=== PATIENT | female | born 1995 | race Hispanic/Latino ===

== ENCOUNTER 2018-03-28 15:09 | Inpatient (IN) | payer OTHER ==
[~2018-03-28] VITALS: Ht 149.9 cm; Wt 74.5 kg
--- NOTE | 2018-03-28 16:05 | Diagnostic Imaging Report ---
EXAMINATION: CHEST SINGLE (PORTABLE) COMPARISON: None INDICATION: Shortness of breath, history of fluid in the lungs DISCUSSION: Frontal view of the chest obtained at 1540 hours. HEART AND MEDIASTINUM: The heart is normal in morphology LINES: None. LUNGS/PLEURA: Moderate to large right pleural effusion. Small left pleural effusion. Aerated lung demonstrates no evidence of mass. No pneumonia or pulmonary edema. No pneumothorax. BONES AND SOFT TISSUES: No focal osseous lesion. The soft tissues are normal. IMPRESSION: Moderate to large right and small left pleural effusions. Underlying infiltrate or mass cannot be excluded. Signed by: Dr. Eloisa Becerra MD on 03/28/2018 4:01 PM
[2018-03-28 16:22] LABS: ALANINE AMINOTRANSFERASE 9 IU/L (0-55); ALBUMIN 2.6 g/dL (3.5-5.0); ALBUMIN/GLOBULIN RATIO 0.8 (0.8-2.0); ALKALINE PHOSPHATASE 103 IU/L (40-150); ANION GAP 12.3 mmol/L (8-16); BLOOD UREA NITROGEN 6 mg/dL (7-26); BUN/CREATININE RATIO 11 (6-25); CALCIUM 8.8 mg/dL (8.4-10.2); CARBON DIOXIDE 19 mmol/L (22-29); CHLORIDE 105 mmol/L (98-107); CREATINE KINASE 12 IU/L (29-168); CREATININE, SERUM 0.57 mg/dL (0.57-1.11); EST GLOMERULAR FILTRATION RATE > 60 ML/MIN (60-); GLUCOSE 100 mg/dL (74-118); POTASSIUM 3.3 mmol/L (3.5-5.1); SODIUM 133 mmol/L (136-145)
[2018-03-28 16:29] LABS: BASOPHILS % 0.3 % (0.0-1.0); EOSINOPHILS # (AUTO) 0.2 (0.0-0.4); EOSINOPHILS % 3.7 % (0.0-6.0); HEMATOCRIT 34.5 % (34.2-44.1); HEMOGLOBIN 12.2 g/dL (12.0-16.0); LYMPHOCYTES # (AUTO) 0.9 (1.0-3.2); LYMPHOCYTES % 13.6 % (18.0-39.1); MEAN CORPUSCULAR HEMOGLOBIN 31.4 pg (28-32); MEAN CORPUSCULAR HGB CONC 35.4 g/dL (31-35); MEAN CORPUSCULAR VOLUME 88.9 fL (81-99); MONOCYTES # (AUTO) 0.4 (0.2-0.8); MONOCYTES % 6.7 % (4.4-11.3); NEUTROPHILS # (AUTO) 4.9 (2.1-6.9); NEUTROPHILS % 75.4 % (38.7-80.0); PLATELET COUNT 184 x10e3/uL (140-360); RED BLOOD COUNT 3.88 x10e6/uL (3.6-5.1); RED CELL DISTRIBUTION WIDTH 14.1 % (11.7-14.4)
[2018-03-28] MEDS ORDERED: ENOXAPARIN SODIUM INJ 100 MG/ML SYR SC STA (16:29)
[2018-03-28 16:40] LABS: INR 1.07; PARTIAL THROMBOPLASTIN TIME 26.2 seconds (23.8-35.5); PROTHROMBIN TIME 13.1 seconds (11.9-14.5)
[2018-03-28] MEDS ORDERED: FUROSEMIDE INJ 10 MG/ML 4 ML VIAL IV ONE (17:15)
[2018-03-28] MEDS ORDERED: ONDANSETRON HCL INJ 2 MG/ML VIAL IV PRN (17:45)
[2018-03-28] MEDS ORDERED: HYDROMORPHONE 1MG/1ML INJ IV PRN (17:45)
[2018-03-28] MEDS ORDERED: DIPHENHYDRAMINE HCL INJ 50 MG/ML VIAL IV PRN (17:45)
[2018-03-28 20:32] VITALS: BP 114/91
[2018-03-28 20:42] VITALS: BP 114/91
[2018-03-28] MEDS: ACETAMINOPHEN 325 MG TAB PO PRN (23:16)
[2018-03-29] VITALS (8 sets, daily range): BP systolic 105–129; BP diastolic 71–96
[2018-03-29] MEDS: FAMOTIDINE 20 MG TAB PO SCH ×2 (07:30→16:29)
[2018-03-29] MEDS ORDERED: POTASSIUM CHLORIDE 20 MEQ TAB CR PO ONE (08:45)
[2018-03-29] MEDS ORDERED: HYDROMORPHONE 2MG/ML 2 MG/ML ML IV PRN (09:00)
[2018-03-29] MEDS: ONDANSETRON HCL INJ 2 MG/ML VIAL IV PRN (10:02)
[2018-03-29 13:20] LABS: EOSINOPHILS,BODY FLUID 10 %; LYMPHOCYTES,BODY FLUID 52 %; MONO/MACROPHG,BODY FLUID 1 %; OTHER CELLS,BODY FLUID 37 %
[2018-03-29 13:33] LABS: BODY FLUID TYPE PERITONEAL
[2018-03-29 13:34] LABS: BODY FLUID APPEARANCE SL.CLOUDY; BODY FLUID COLOR RED
[2018-03-29 13:46] LABS: RBC,BODY FLUID 5024 cells/uL; WBC,BODY FLUID 520 cells/uL
--- NOTE | 2018-03-29 13:52 | Diagnostic Imaging Report ---
Procedure: Ultrasound-guided left diagnostic and therapeutic thoracentesis mixing roll operator: Dr. Major Foreman Pre-operative diagnosis: Left pleural effusion Post-operative diagnosis: Left pleural effusion Local sedation: 10 cc of 1% subcutaneous lidocaine Estimated blood loss: Minimal Specimens: 1750cc pleural fluid Implants: None DISCUSSION: Informed consent was obtained from the patient and documented in the medical record. The patient was placed in the upright position. The left posterior chest was prepped and draped in standard sterile fashion. 1% lidocaine was infiltrated into the skin and subcutaneous tissues for local anesthesia. Then under sonographic guidance, a 5 Fr catheter was advanced into the left pleural space. The catheter was advanced off the needle and connected to vacuum bottle with subsequent evacuation of 1750 cc of dark serous fluid. The catheter was removed and a sterile, occlusive dressing was applied. Sample was sent to the lab. The patient tolerated the procedure well. FINDINGS: Large left pleural effusion. IMPRESSION: Ultrasound-guided left thoracentesis with evacuation of 1750 cc straw-colored fluid. PLAN: Post procedural monitoring per protocol. Of note, the patient is and declined a post procedural chest radiograph at the time of the procedure. Signed by: Dr. Major Foreman MD on 03/29/2018 1:48 PM
--- NOTE | 2018-03-29 14:07 | Diagnostic Imaging Report ---
EXAM: US OB 1st TRIM SINGLE GEST INDICATION: High risk evaluation COMPARISON: None TECHNIQUE: Transabdominal and transvaginal grayscale and color doppler sonographic images of the pelvis were obtained. Transvaginal imaging was medically necessary to better evaluate the fetus. 22 yr old A0 Last Menstrual Period: Not reported FINDINGS: UTERUS: Orientation: Anteverted Size: 12.8 x 9.2 x 9.8 Mass: None Cervix: Normal GESTATIONAL SAC: Intrauterine, normal in appearance. No evidence of a subchorionic hemorrhage. YOLK SAC: Visualized EMBRYO/FETUS: Cane [place]-rump length: 6.98 Estimated sonographic gestational age: 13w 1d Cardiac activity: 155 bpm RIGHT OVARY: Removed LEFT OVARY: Poorly visualized due to abdominal gas. Mild free fluid. IMPRESSION: Single living intrauterine . Sonographic gestational age estimated at 13weeks 1days. Signed by: Dr. Manuel Swain M.D. on 03/29/2018 2:03 PM
[2018-03-29] MEDS ORDERED: POTASSIUM CHLORIDE 20 MEQ TAB CR PO NR (14:45)
--- NOTE | 2018-03-29 16:59 | History and Physical ---
HISTORY OF PRESENT ILLNESS: A 22-year-old female with past medical history positive for lupus. Patient came here with shortness of breath. She was found to have a right pleural effusion. She underwent a thoracentesis. She is feeling better right now. The oxygen saturation is 99%. REVIEW OF SYSTEMS: CARDIOVASCULAR: No chest pain or palpitation. RESPIRATORY: She has cough. Shortness of breath has improved significantly. No other symptoms. GASTROINTESTINAL: No nausea, no vomiting, no diarrhea. GENITOURINARY: No frequency, no dysuria. ALLERGIES: SHE IS NOT ALLERGIC TO ANY MEDICATION. SOCIAL HISTORY: She does not smoke. She does not drink. PAST MEDICAL HISTORY: Positive for lupus and also recurrent thoracentesis. Also she has been treated by a loading unit operator crimping for lupus in an outside facility. VITAL SIGNS: On the blood pressure 115/80, temperature 98.4, heart rate 96 per minute, respiratory rate is 22 per minute. Oxygen saturation 99%. PHYSICAL EXAMINATION: HEART: Shows regular rhythm. Normal S1 and S2 sounds. LUNGS: Show decreased breath sounds bilaterally. ABDOMEN: Soft. EXTREMITIES: Show 2+ bilateral pedal edema. LAB: On the BMP: Sodium 133, potassium 3.3, chloride 105, CO2 19, BUN 6, creatinine 0.57, glucose 100. On the CBC: White blood count 6.33, hemoglobin 12.2, hematocrit 34.5, platelet count 184,000. PT 13.1, PTT 26.2, INR 1.07. AST 17, ALT 9, total bilirubin 0.2, alkaline phosphatase 103. FINAL IMPRESSION: 1. Recurrent right pleural effusion status post thoracentesis. 2. History of lupus. 3. Hypokalemia. 4. . 5. Hypoxemia. PLAN OF TREATMENT: We are going to continue Tylenol 650 mg q.4 h. as needed. Benadryl 25 mg q.6 h. as needed. Pepcid 20 mg twice a day[address] Dr. Wood has been consulted from the pulmonary point of view. Dr. Markham has been consulted from the OB-STREETCAR REPAIRER point of view. Pelvic ultrasound has shown the 13 weeks' already. The patient knows that we are very limited in the medication options that we can give her due to the . We are going to order the obmf-zbgtsm-vsthsogc DNA antibodies also and ESR also for a confirmation of lupus. Job#: [id number] EV
[2018-03-29 17:23] LABS: ANION GAP 11.4 mmol/L (8-16); BLOOD UREA NITROGEN 7 mg/dL (7-26); BUN/CREATININE RATIO 11 (6-25); CALCIUM 8.7 mg/dL (8.4-10.2); CARBON DIOXIDE 23 mmol/L (22-29); CHLORIDE 104 mmol/L (98-107); CREATININE, SERUM 0.64 mg/dL (0.57-1.11); EST GLOMERULAR FILTRATION RATE > 60 ML/MIN (60-); GLUCOSE 99 mg/dL (74-118); POTASSIUM 3.4 mmol/L (3.5-5.1); SODIUM 135 mmol/L (136-145)
[2018-03-29] MEDS: BENZONATATE 100 MG CAP PO PRN (19:10)
[2018-03-29] MEDS ORDERED: MAGNESIUM SULF 1GRAM/DEXTROSE 100 ML IV ONE (20:15)
[2018-03-29] MEDS ORDERED: MAGNESIUM SULFATE 2GM/50ML 100 ML IV ONE (20:45)
[2018-03-29] MEDS ORDERED: SODIUM CHLORIDE 0.9% 250ML 250 ML ONE (20:54)
[2018-03-30] VITALS (7 sets, daily range): BP systolic 101–109; BP diastolic 66–77
[2018-03-30 05:27] LABS: ANION GAP 11.8 mmol/L (8-16); BLOOD UREA NITROGEN 7 mg/dL (7-26); BUN/CREATININE RATIO 13 (6-25); CALCIUM 8.7 mg/dL (8.4-10.2); CARBON DIOXIDE 22 mmol/L (22-29); CHLORIDE 107 mmol/L (98-107); CREATININE, SERUM 0.55 mg/dL (0.57-1.11); EST GLOMERULAR FILTRATION RATE > 60 ML/MIN (60-); GLUCOSE 89 mg/dL (74-118); POTASSIUM 3.8 mmol/L (3.5-5.1); SODIUM 137 mmol/L (136-145)
[2018-03-30] MEDS: FAMOTIDINE 20 MG TAB PO SCH ×2 (07:46→15:53)
[2018-03-30] MEDS: ONDANSETRON HCL INJ 2 MG/ML VIAL IV PRN (09:30)
--- NOTE | 2018-03-30 10:57 | Consultation ---
DATE OF CONSULTATION: Thank you very much for asking me to see this patient, 22 years old, 1, para 0. She came into the hospital complaining of shortness of breath and lower leg swelling. She was found to have pleural effusion. She has a history of systemic lupus that was diagnosed over a year ago. She is on hydroxychloroquine and vitamins. She had multiple thoracocenteses in the past. During her stay in the hospital, she was found to be . Ultrasound showed a viable, 25-iurh-9-day . She denies any leakage of fluid or vaginal bleeding. 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 PAST SURGICAL HISTORY: Thoracocentesis multiple times. Tonsillectomy, adenoidectomy, and right oophorectomy. ALLERGIES: NO KNOWN DRUG ALLERGIES. SOCIAL HISTORY: She denies smoking, ethanol and drug abuse. REVIEW OF SYSTEMS: She denies any hematological, gastrointestinal, dermatological, psychological, or musculoskeletal problem or psychiatric problem. PHYSICAL EXAMINATION VITAL SIGNS: Stable. CHEST: Clear to auscultation. CARDIOVASCULAR: Regular rate and rhythm. ABDOMEN: Soft, nontender. ASSESSMENT AND PLAN: She is a 22-year-old, 1, para 0, at 13 weeks. The patient was advised to continue vitamins and also to add folic acid tablets in the future. Hydroxychloroquine depends on the necessity of continuation of the medication. However, we do not have enough human data to recommend any iatrogenic effect on the baby. The patient was advised to see her OB doctor once she is discharged from the hospital. I will be happy to follow up on her as needed during her hospital stay. Once again, thank you very much Dr. King, for allowing me to see this patient. Please do not hesitate to call me if I can be of any further help in the future. Job#: [id number] cc:ZORAIDA KING MD
--- NOTE | 2018-03-30 23:02 | Discharge Summary ---
HOSPITAL COURSE: The patient is a 22-year-old female who had a past medical history positive for apparently lupus. She is , came here with shortness of breath. She was found to have right pleural effusion. She underwent thoracentesis. She is feeling much better. The oxygen saturation is 99%. She had hypokalemia, potassium has been replaced. Dr. Wood, her pulmonology, is going to see her as an outpatient. She has her gynecology seeing her as an outpatient. Also, she was told to follow with her compound coating machine offbearer. So far, the pleural fluid is negative for any type of infection after 1 day. We are going to wait until tomorrow. If the pleural effusion is negative for today, the patient can be able to go home tomorrow if okay with Dr. Wood. PHYSICAL EXAM VITAL SIGNS: Blood pressure 103/70, temperature 97.9, heart rate 107 per minute, respiratory rate 17 per minute, oxygen saturation 98%. HEART: Shows regular rhythm. Normal S1, S2 sounds. LUNGS: Clear bilaterally. ABDOMEN: Soft. LABS: On the BMP, sodium 137, potassium 3.8, chloride 107, CO2 22, BUN 7, creatinine 0.55, glucose 89. On the CBC, white blood count 6.33, hemoglobin 12.2, hematocrit 34.5, platelet count 184,000. PT 13.1, INR 1.07, PTT 26.2. AST 17, ALT 9, total bilirubin 0.2, alkaline phosphatase 103. FINAL IMPRESSION 1. Right pleural effusion, status post thoracentesis. 2. History of lupus. 3. Hypokalemia. 4. Third trimester . 5. Hypoxemia secondary to pleural effusion which is resolved. PLAN OF TREATMENT: Patient will follow up with her OB-WIRE STITCHER OPERATOR, Dr. Wood also for pulmonary and her compound coating machine offbearer for lupus also as long as the fluid culture is negative for 48 hours and if okay with the consultants. ZORAIDA KING MD Job#: [id number] GE
[2018-03-31] VITALS (7 sets, daily range): BP systolic 71–115; BP diastolic 60–71
[2018-03-31] MEDS: FAMOTIDINE 20 MG TAB PO SCH ×2 (08:48→17:00)
[2018-03-31] MEDS: ONDANSETRON HCL INJ 2 MG/ML VIAL IV PRN (10:00)
[2018-03-31] MEDS: BENZONATATE 100 MG CAP PO PRN ×2 (10:59→21:46)
[2018-03-31] MEDS: ACETAMINOPHEN 325 MG TAB PO PRN (12:15)
--- NOTE | 2018-03-31 15:54 | Diagnostic Imaging Report ---
ULTRASOUND: Chest TECHNIQUE: Ultrasound evaluation of the chest for pleural effusion. HISTORY: Pleural effusion COMPARISON: Chest radiograph March 28, 2018. DISCUSSION: Bilateral anechoic fluid in the dependent portion of the pleural cavities. IMPRESSION: Moderate bilateral pleural effusions. Signed by: Dr. Syed Dallas D.O., M.M.M. on 03/31/2018 3:50 PM
--- NOTE | 2018-03-31 18:12 | Progress Note ---
DATE: INTERNAL MEDICINE PROGRESS NOTE SUBJECTIVE: Patient is complaining of shortness of breath. We did an ultrasound of both lungs. It showed moderate pleural effusion. Patient is going to get a thoracentesis. We consulted Dr. Wood, pulmonology. We are still waiting for his evaluation. If we do not have any visit, we might call another shearing supervisor. PHYSICAL EXAM: VITAL SIGNS: Blood pressure 114/70. Temperature 99.4. Heart rate 100 per minute. Respiratory rate 18 per minute. Oxygen saturation 96%. HEART: Shows regular rhythm. Normal S1 and S2 sounds. LUNGS: Show decreased air sounds bilaterally. ABDOMEN: Soft. EXTREMITIES: Showed 2+ bilateral pedal edema. FINAL IMPRESSION: 1. Recurrent bilateral pleural effusion. 2. History of lupus but negative anti-double DNA antibodies. 3. . On the BMP: Sodium 137, potassium 3.8, chloride 107, CO2 22, BUN 7, creatinine 0.55, glucose 89. On the CBC: White blood count 6.53, hemoglobin 12.2, hematocrit 34.5, platelet count 184,000. PT 13.1, INR 1.07, PTT is 26.2. AST 17, ALT 9, total bilirubin 0.2, alkaline phosphatase 103. PLAN OF TREATMENT: Continue with Tessalon 200 mg q.8 h. as needed. Pepcid 20 mg twice a day. Tylenol 650 mg q.6 h. as needed. Benadryl 25 mg q.6 h. as needed. Case has been discussed with the nurse and with the patient. Job#: [id number] EV
[2018-04-01] VITALS: BP 102/60
[2018-04-01 04:00] VITALS: BP 95/62
[2018-04-01] MEDS: FAMOTIDINE 20 MG TAB PO SCH ×2 (07:23→16:45)
[2018-04-01 08:00] VITALS: BP 103/64
[2018-04-01 09:15] VITALS: BP 95/62
--- NOTE | 2018-04-01 10:51 | Diagnostic Imaging Report ---
PROCEDURE: ULTRASOUND GUIDED THORACENTESIS COMPARISON: None. INDICATIONS:PLEURAL EFFUSION FINDINGS: After informed consent was obtained, the patient was placed in the sitting position and preliminary ultrasound of the posterior chest identified a safe route into the right pleural effusion. The overlying skin was prepped and draped in usual sterile fashion. Lidocaine 1% was used for local anesthesia. Under ultrasound guidance, a 5 [place] Cent[place] needle was advanced into the pleural fluid and 1550 cc's were aspirated. The patient tolerated the procedure well and there were no immediate post-procedural complications. A post-thoracentesis chest radiograph was declined by the patient as she is . Specimen was sent to the laboratory for analysis. CONCLUSION: Uncomplicated ultrasound-guided right thoracentesis with removal of 1550 cc's of cloudy effusion. Enrique Donis D.O. Dictated by: Enrique Donis D.O. on 04/01/2018 at 10:58 Electronically approved by: Enrique Donis D.O. on 04/01/2018 at 10:58
--- NOTE | 2018-04-01 11:57 | Diagnostic Imaging Report ---
EXAM: Obstetric Pelvic Ultrasound limited INDICATION: Post procedure ultrasound COMPARISON: March 29, 2018 TECHNIQUE: Transabdominal evaluation of the pelvis was performed in the transverse and longitudinal planes with grayscale, color Doppler and spectral waveform analysis. CLINICAL HISTORY: 22 year old A0; mp 12/27/2017. Established due date 10/03/2018 FINDINGS: Uterus: Orientation: Normal Cervix: Cervical length 2.5 cm. Distance of placental tip to internal cervical os 4.1 cm No evidence of placenta previa. Single gestation. Visualized anatomy: Four-chamber heart is limited Regular cardiac rhythm noted with 156 bpm. Normal-appearing stomach visualized. Kidneys not well seen. bladder nondistended. BPD 2.7 cm. HC 10.23 cm. AC 8.0 cm. FL 1.46 cm position transverse and variable. Placental location posterior YOHANNES 11.3 cm IMPRESSION: Single viable intrauterine is seen consistent with 14 weeks 5 days gestation in variable position. No evidence of placenta previa. Signed by: Dr. Guanaco Valera M.D. on 04/01/2018 11:53 AM
[2018-04-01 12:00] VITALS: BP 103/74
[2018-04-01 16:00] VITALS: BP 100/68
--- NOTE | 2018-04-01 18:34 | Discharge Summary ---
HISTORY OF PRESENT ILLNESS: A 22-year-old female with past medical history positive for possible lupus, recurrent pleural effusions. Patient came here with shortness of breath. She was found to have pleural effusion. She underwent ultrasound-guided thoracentesis. Then she had recurrent right pleural effusion. She had another thoracentesis done. She is feeling better. She wants to go home. She has been seen by Dr. Markham for OB-INK BLENDER due to her . The is viable right now. She was seen by , one of Dr. Wood's pulmonary partners. He is going to be seeing the patient as an outpatient. PHYSICAL EXAM: HEART: Shows regular rhythm, normal S1 and S2 sounds. LUNGS: Show decreased breath sounds on both bases. VITAL SIGNS: Blood pressure 103/74, temperature 98.4, heart rate 96 per minute, respiratory rate 17 per minute, oxygen saturation 97%. LABORATORY STUDIES: On the blood work we have a BMP: Sodium 137, potassium 3.8, chloride 107, CO2 22, BUN 7, creatinine 0.55, glucose 89. On the CBC: White blood count 6.53, hemoglobin 10.2, hematocrit 34.5, platelet count 184,000. PT 13.1, INR 1.00, PTT is 26.2. AST 17, ALT 9, total bilirubin 0.2, alkaline phosphatase 103. FINAL IMPRESSIONS: 1. Recurrent pleural effusion. 2. History of lupus. PLAN OF TREATMENT: Patient is going to be followed up by Dr. Wood, office administration, who is very familiar with the case. I have reinforced the fact that she has to follow up with the OB-INK BLENDER for the also and the production troubleshooter also. Because of her , we are limited in what medication we can give the patient. Patient is doing well. No shortness of breath and then the oxygen saturation is 97%. A fluid culture is negative for 3 days. No fever. ZORAIDA KING MD Job#: [id number] EV
--- NOTE | 2018-04-01 18:45 | Discharge Summary ---
During the time the patient was under my care, the thoracentesis was done under ultrasound guidance only, as I said, once the patient came under my care because of the . Patient is aware what medication she can take because of the and she is aware of the contraindications of the medication. We cannot give any diuretics because of the also. So, the patient is aware of that; and as I said, the patient is going to follow up with Dr. Wood from pulmonary, her OB-CONVEYOR FEEDER because of the and also the engineered wood designer. ZORAIDA KING MD Job#: [id number] GE
--- NOTE | 2018-04-02 03:00 | Consultation ---
DATE OF CONSULTATION: April 01, 2018 PULMONARY MEDICINE CONSULT REFERRING PHYSICIAN: Dr. Alcantar. HISTORY: Ms. White is a pleasant 22-year-old female with pleural effusions. The patient with complicated history, but of note, she is actively at over 13 weeks. I was called this morning to see the patient due to need for emergency pulmonary coverage. The patient with significant pleural effusions. The patient had neuropathy type symptoms and she was diagnosed with drug induced lupus in 2014 and this was thought due to oral contraceptive that she was taking. The patient continued to do okay. However, she developed a butterfly rash, arthritis, and possibly some neuropathic kind of pain. In August 2016, she was diagnosed with systemic lupus erythematosus. The patient required 1st thoracentesis in August 2016. The patient was given prednisone 100 mg, azathioprine 50 mg, Plaquenil 200 mg twice a day, and she was on medicines for the most part of 10 months. She had some improvement. However, the patient was on polypharmacy and she was worried that she was getting side effects of medications. She stopped all medications on her own earlier this year. She subsequently had q.3 months thoracentesis, but she has had 6 to 7 thoracentesis in last month and a half. The patient switched master fire control technician, but still has not resumed medicines and she seems to have distrust of these medications. She presented to [facility] on March 28, 2018, after being sent by different communication technician. The patient had thoracentesis, but fluid rapidly recurred. A 520 mL was out on March 29, 2018. I am consulted as fluid rapidly recurred. PAST MEDICAL HISTORY: Lupus reported, recurrent thoracentesis. Current master fire control technician, Dr. Ignacio. CURRENT MEDICATIONS: Mostly none. ALLERGIES: NO KNOWN DRUG ALLERGIES. SOCIAL HISTORY: She smoked from age 17 to 21, less than half a pack a day, usually not practically cigarettes, but other kinds of tobacco. She drank alcohol heavily for only a few years after age 16, but not recently. No IV drugs, no drug use. She was waitressing. FAMILY HISTORY: Noncontributory. REVIEW OF SYSTEMS GENERAL: Unexpected weight changes. OPHTHALMOLOGIC: No double vision. ENT: No thyroid disorder. PULMONARY: No asthma. CARDIAC: No heart attacks. GI: No constipation. : No blood in urine. NEUROLOGIC: No seizures. DERMATOLOGIC: No active rashes. MUSCULOSKELETAL: Mild arthritis, not too bad. OBJECTIVE VITAL SIGNS: Afebrile, vital signs noted per electronic record. GENERAL: In no acute distress. Able to talk in full sentences, seen calm and pleasant in bed. HEENT: Normocephalic, atraumatic. Throat midline. NECK: Supple. LUNGS: Bilateral air entry, decreased breath sounds at both lungs. CARDIOVASCULAR: S1, S2. No murmurs, rubs or gallops. ABDOMEN: Soft, nontender. EXTREMITIES: No clubbing or cyanosis. There is 1+ edema. INTEGUMENT: No rash or purpura. LABS: Potassium 3.8, BUN 7, creatinine 0.6. White count 7, hematocrit 35, platelets 184,000. INR 1.07. IMPRESSION 1. Recurrent pleural effusions, under investigation. 2. Active , over 13 weeks. 3. Reported systemic lupus erythematosus. 4. Medicine nonadherence. 5. Minimal former smoker. 6. Minimal alcohol in the past. 7. History of allergy, mild, perennial. PLAN: I have counseled the patient. I recommend checking for lupus activity at this time. Consideration should be for steroids based on the activity level. She should be replaced on her Plaquenil and azathioprine realistically for lupus control. Of course, she will need counseling regarding risk to her baby in utero. However, she is high risk in this current state, so it seems reasonable to resume lupus agents. The patient can continue recurrent thoracentesis at this time. She needs a full diagnostic assessment of the pleural effusion. I notified her I would discuss with her master fire control technician. Thank you very much Dr. Alcantar for allowing me a chance to participate in the care of Ms. White. Please do not hesitate to contact me if I could help in any way. Job#: [id number] SANTOS
== END 2018-04-01 18:19 | disposition home or self-care (01) | DRG 547 ==
LOC: ER 15:13 → ERHOLD 17:39 → IMCU 19:20 → MED/SURG2 03-30 18:31
PROVIDERS: ADMIT Internal Medicine; ATTEND Internal Medicine
PROC: 0W993ZZ Drainage of Right Pleural Cavity, Percutaneous Approach (ICD-10-PCS; principal; 2018-03-28)
DX: M32.13 Lung involvement in systemic lupus erythematosus (principal); Z34.01 Encounter for supervision of normal first pregnancy, first trimester; R09.02 Hypoxemia
CPT/HCPCS: 32555; 36415; 71045; 74470; 76604; 76801; 76815; 80048; 80053; 82550; 82553; 83615; 83735; 83880; 84157; 84484; 85025; 85610; 85651; 85730; 86039; 86225; 87070; 87102; 87116; 87205; 87206; 88112; 88305; 89051; 93005; 96360; 99284; J1650; J1940; J2405; J7050

== ENCOUNTER 2019-02-27 16:45 | Inpatient (IN) | payer OTHER ==
[~2019-02-27] VITALS: Ht 149.9 cm; Wt 78.0 kg
--- OUTSIDE RECORDS SUMMARY | 2019-02-27 16:48 | XMS REPORT | Continuity of Care Document ---
Author Author [employer] Organization [employer] Address Unknown Phone Unavailable Care Team Providers Care Bone Char Puller Name Role Phone Strolby Information Qwenty Unavailable Unavailable Problems Problem Status Onset Date Classification Date Reported Comments Source 848.3 - SPRAIN OF RIBS Active 04/15/2013 [facility] [place] Secondary pleural effusion Active Problem 04/01/2018 [facility] Medications No Data Provided for This Section Allergies, Adverse Reactions, Alerts No Known Medication Allergies Immunizations No Data Provided for This Section Results Order Name Results Value Reference Range Date Interpretation Comments Source Body fluid lactate dehydrogenase measurement (enzymatic activity/volume) Body fluid lactate dehydrogenase measurement (enzymatic activity/volume) 78 04/01/2018 [facility] Body fluid protein measurement (mass/volume) Body fluid protein measurement (mass/volume) 4.1 04/01/2018 [facility] Erythrocyte sedimentation rate by Westergren method Erythrocyte sedimentation rate by Westergren method 62 0 - 20 03/30/2018 [facility] Estimated glomerular filtration rate (GFR) determination Estimated glomerular filtration rate (GFR) determination >60 60 03/30/2018 [facility] Glucose measurement Glucose measurement 89 74 - 118 03/30/2018 [facility] Serum or plasma anion gap Serum or plasma anion gap 11.8 8 - 16 03/30/2018 [facility] Serum or plasma calcium measurement (mass/volume) Serum or plasma calcium measurement (mass/volume) 8.7 8.4 - 10.2 03/30/2018 [facility] Serum or plasma carbon dioxide, total measurement (moles/volume) Serum or plasma carbon dioxide, total measurement (moles/volume) 22 22 - 29 03/30/2018 [facility] Serum or plasma chloride measurement (moles/volume) Serum or plasma chloride measurement (moles/volume) 107 98 - 107 03/30/2018 [facility] Serum or plasma creatinine measurement (mass/volume) Serum or plasma creatinine measurement (mass/volume) 0.55 0.57 - 1.11 03/30/2018 [facility] Serum or plasma magnesium measurement (mass/volume) Serum or plasma magnesium measurement (mass/volume) 1.8 1.3 - 2.1 03/30/2018 [facility] Serum or plasma potassium measurement (moles/volume) Serum or plasma potassium measurement (moles/volume) 3.8 3.5 - 5.1 03/30/2018 [facility] Serum or plasma sodium measurement (moles/volume) Serum or plasma sodium measurement (moles/volume) 137 136 - 145 03/30/2018 [facility] Serum or plasma urea nitrogen measurement (mass/volume) Serum or plasma urea nitrogen measurement (mass/volume) 7 7 - 26 03/30/2018 [facility] Serum or plasma urea nitrogen/creatinine mass ratio Serum or plasma urea nitrogen/creatinine mass ratio 13 6 - 25 03/30/2018 [facility] Serum DNA double strand antibody assay (units/volume) Serum DNA double strand antibody assay (units/volume) 1 0 - 9 03/29/2018 [facility] Body fluid eosinophil percentage Body fluid eosinophil percentage 10 03/29/2018 [facility] Body fluid lymphocyte count Body fluid lymphocyte count 52 03/29/2018 [facility] Body fluid monocyte count Body fluid monocyte count 1 03/29/2018 [facility] Body fluid other cells manual count Body fluid other cells manual count 37 03/29/2018 [facility] Determination of appearance of body fluid Determination of appearance of body fluid SL.CLOUDY 03/29/2018 [facility] Evaluation of color of body fluid Evaluation of color of body fluid RED 03/29/2018 [facility] Manual body fluid erythrocytes count (number/volume) Manual body fluid erythrocytes count (number/volume) 5024 03/29/2018 [facility] Manual body fluid leukocytes count (number/volume) Manual body fluid leukocytes count (number/volume) 520 03/29/2018 [facility] Specimen source identification of body fluid Specimen source identification of body fluid PERITONEAL 03/29/2018 [facility] Total cell count Total cell count 100 03/29/2018 [facility] Activated partial thromboplastin time (aPTT) in platelet poor plasma bycoagulation assay Activated partial thromboplastin time (aPTT) in platelet poor plasma bycoagulation assay 26.2 23.8 - 35.5 03/28/2018 [facility] Automated blood basophil count (count/volume) Automated blood basophil count (count/volume) 0.0 0.0 - 0.1 03/28/2018 [facility] Automated blood basophil count as percentage of total leukocytes Automated blood basophil count as percentage of total leukocytes 0.3 0.0 - 1.0 03/28/2018 [facility] Automated blood eosinophil count Automated blood eosinophil count 0.2 0.0 - 0.4 03/28/2018 [facility] Automated blood eosinophil count as percentage of total leukocytes Automated blood eosinophil count as percentage of total leukocytes 3.7 0.0 - 6.0 03/28/2018 [facility] Automated blood hematocrit (volume fraction) Automated blood hematocrit (volume fraction) 34.5 34.2 - 44.1 03/28/2018 [facility] Automated blood lymphocyte count as percentage ot total leukocytes Automated blood lymphocyte count as percentage ot total leukocytes 13.6 18.0 - 39.1 03/28/2018 [facility] Automated blood monocyte count as percentage of total leukocytes Automated blood monocyte count as percentage of total leukocytes 6.7 4.4 - 11.3 03/28/2018 [facility] Automated blood neutrophil count Automated blood neutrophil count 4.9 2.1 - 6.9 03/28/2018 [facility] Automated blood platelet count (count/volume) Automated blood platelet count (count/volume) 184 140 - 360 03/28/2018 [facility] Automated blood segmented neutrophil count as percentage of total leukocytes Automated blood segmented neutrophil count as percentage of total leukocytes 75.4 38.7 - 80.0 03/28/2018 [facility] Automated erythrocyte mean corpuscular hemoglobin (mass per erythrocyte) Automated erythrocyte mean corpuscular hemoglobin (mass per erythrocyte) 31.4 28 - 32 03/28/2018 [facility] Automated erythrocyte mean corpuscular hemoglobin concentration measurement (mass/volume) Automated erythrocyte mean corpuscular hemoglobin concentration measurement (mass/volume) 35.4 31 - 35 03/28/2018 [facility] Automated erythrocyte mean corpuscular volume Automated erythrocyte mean corpuscular volume 88.9 81 - 99 03/28/2018 [facility] Blood erythrocytes automated count (number/volume) Blood erythrocytes automated count (number/volume) 3.88 3.6 - 5.1 03/28/2018 [facility] Blood hemoglobin measurement (moles/volume) Blood hemoglobin measurement (moles/volume) 12.2 12.0 - 16.0 03/28/2018 [facility] Blood leukocytes automated count (number/volume) Blood leukocytes automated count (number/volume) 6.53 4.8 - 10.8 03/28/2018 [facility] Blood lymphocytes count (number/volume) Blood lymphocytes count (number/volume) 0.9 1.0 - 3.2 03/28/2018 [facility] Blood monocytes automated count (number/volume) Blood monocytes automated count (number/volume) 0.4 0.2 - 0.8 03/28/2018 [facility] INR in Platelet poor plasma by Coagulation assay INR in Platelet poor plasma by Coagulation assay 1.07 03/28/2018 [facility] Prothrombin time (PT) in platelet poor plasma by coagulation assay Prothrombin time (PT) in platelet poor plasma by coagulation assay 13.1 11.9 - 14.5 03/28/2018 [facility] Red Cell Distribution Width 14.1 11.7 - 14.4 03/28/2018 [facility] IM GRANULOCYTES % 0.3 0.0 - 1.0 03/28/2018 [facility] Absolute Immature Granulocyte (auto 0.02 0 - 0.1 03/28/2018 [facility] B-Type Natriuretic Peptide <10.0 0 - 100 03/28/2018 [facility] Plasma globulin measurement (mass/volume) Plasma globulin measurement (mass/volume) 3.2 2.3 - 3.5 03/28/2018 [facility] Serum or plasma alanine aminotransferase measurement (enzymatic activity/volume) Serum or plasma alanine aminotransferase measurement (enzymatic activity/volume) 9 0 - 55 03/28/2018 [facility] Serum or plasma albumin measurement (mass/volume) Serum or plasma albumin measurement (mass/volume) 2.6 3.5 - 5.0 03/28/2018 [facility] Serum or plasma albumin/globulin mass ratio Serum or plasma albumin/globulin mass ratio 0.8 0.8 - 2.0 03/28/2018 [facility] Serum or plasma alkaline phosphatase measurement (enzymatic activity/volume) Serum or plasma alkaline phosphatase measurement (enzymatic activity/volume) 103 40 - 150 03/28/2018 [facility] Serum or plasma creatine kinase MB measurement (mass/volume) Serum or plasma creatine kinase MB measurement (mass/volume) 0.50 0 - 5.0 03/28/2018 [facility] Serum or plasma creatine kinase measurement (enzymatic activity/volume) Serum or plasma creatine kinase measurement (enzymatic activity/volume) 12 29 - 168 03/28/2018 [facility] Serum or plasma protein measurement (mass/volume) Serum or plasma protein measurement (mass/volume) 5.8 6.5 - 8.1 03/28/2018 [facility] Serum or plasma total bilirubin measurement (mass/volume) Serum or plasma total bilirubin measurement (mass/volume) 0.2 0.2 - 1.2 03/28/2018 [facility] Troponin I measurement by highly sensitive enzyme immunoassay Troponin I measurement by highly sensitive enzyme immunoassay <0.001 0 - 0.300 03/28/2018 [facility] Aspartate Amino Transf (AST/SGOT) 17 5 - 34 03/28/2018 [facility] Pathology Reports No Data Provided for This Section Diagnostic Reports Report Value Date Source Ribs unilateral Multiple views of the right ribs Clinical indication: Rib cage pain Findings: Multiple views of the right ribs were obtained. There is no evidence of acute or chronic rib fracture. There is no right effusion, focal consolation or pneumothorax. Impression: Normal right rib series. 04/15/2013 [facility] Consultation Notes No Data Provided for This Section Discharge Summaries No Data Provided for This Section History and Physicals No Data Provided for This Section Vital Signs No Data Provided for This Section Encounters Location Location Details Encounter Type Encounter Number Reason For Visit Attending Provider ADM Date DC Date Status Source OD [id number] 848.3 - SPRAIN OF RIBS JESI CATES 04/15/2013 Active [facility] Discharged Inpatient [id number] ZORAIDA KING MD 03/28/2018 04/01/2018 [facility] Procedures Procedure Code Date Perfomer Comments Source Limited ultrasound of one or more fetuses [id number] 04/01/2018 [facility] Ultrasound of chest including mediastinum [id number] 03/31/2018 [facility] Thoracentesis with ultrasound guidance [id number] 03/29/2018 [facility] Ultrasound of first trimester, single fetus [id number] 03/29/[facility] Assessment and Plan No Data Provided for This Section Plan of Care Plan of Care Date Source Discharge Date 04/01/18 6:19pm Disposition HOME, SELF-CARE Instructions/Education Provided Prescriptions See Medication Section 04/01/2018 [facility] Social History Social History Date Source No social history information available. 04/01/2018 [facility] Family History No Data Provided for This Section Advance Directives Order Name Results Value Date Source Advance Directives Advance Directives Directive Response Recorded Date/Time Does the patient have an advance directive? No 03/28/18 4:40pm If yes, is advance directive on file with [facility]? No 03/28/18 4:40pm If not on file with [facility] will patient provide a copy? No 03/28/18 4:40pm Do you have a Directive to Physician? No 03/28/18 4:40pm Do you have a Medical Power of Auto [employer] In[employer]? No 03/28/18 4:40pm Do you have an out of hospital Do Not Resuscitate Order? No 03/28/18 4:40pm Do you have any special needs we should be aware of? No 03/28/18 4:40pm Do you have a support person here with you today? Yes 03/28/18 4:40pm Did patient receive Notice of Privacy Practices? Yes 03/28/18 4:40pm Did patient receive patient rights and responsibilities? Yes 03/28/18 4:40pm 04/01/2018 [facility] Functional Status No Data Provided for This Section
[2019-02-27] MEDS ORDERED: BUMETANIDE1 MG PO (17:31)
[2019-02-27] MEDS ORDERED: RAPAMUNE1 MG PO (17:31)
[2019-02-27] MEDS ORDERED: HYDROXYCHLOROQ200 MG PO (17:31)
[2019-02-27 18:11] LABS: BASOPHILS % 0.4 % (0.0-1.0); EOSINOPHILS # (AUTO) 0.2 (0.0-0.4); EOSINOPHILS % 4.1 % (0.0-6.0); HEMATOCRIT 36.1 % (34.2-44.1); HEMOGLOBIN 10.7 g/dL (12.0-16.0); LYMPHOCYTES # (AUTO) 1.5 (1.0-3.2); LYMPHOCYTES % 28.8 % (18.0-39.1); MEAN CORPUSCULAR HEMOGLOBIN 24.2 pg (28-32); MEAN CORPUSCULAR HGB CONC 29.6 g/dL (31-35); MEAN CORPUSCULAR VOLUME 81.7 fL (81-99); MONOCYTES # (AUTO) 0.5 (0.2-0.8); MONOCYTES % 10.1 % (4.4-11.3); NEUTROPHILS # (AUTO) 2.9 (2.1-6.9); NEUTROPHILS % 56.4 % (38.7-80.0); PLATELET COUNT 275 x10e3/uL (140-360); RED BLOOD COUNT 4.42 x10e6/uL (3.6-5.1); RED CELL DISTRIBUTION WIDTH 16.2 % (11.7-14.4)
--- NOTE | 2019-02-27 18:26 | Diagnostic Imaging Report ---
EXAMINATION: PA and lateral views of the chest. COMPARISON: AP chest 03/28/2018 CLINICAL HISTORY: Shortness of breath, dizziness, fluid in lungs DISCUSSION: Lines/tubes: None. Lungs: Lungs are well-inflated. Bilateral interstitial and alveolar opacities extending from the eva. Pleura: Bilateral moderate pleural effusions Heart and mediastinum: Cardiac silhouette is obscured. Marked central pulmonary venous congestion. Bones and soft tissues: No acute bony abnormalities. IMPRESSION: 1. Findings consistent with decompensated CHF/fluid overload Signed by: Dr. Keegan Aguiar M.D. on 02/27/2019 6:22 PM
[2019-02-27 18:34] LABS: BILIRUBIN,URINE NEGATIVE (NEGATIVE); CLARITY,URINE CLEAR (CLEAR); COLOR,URINE YELLOW (YELLOW); KETONES,URINE NEGATIVE (NEGATIVE); LEUKOCYTE ESTERASE ,URINE SMALL (NEGATIVE); NITRITE,URINE NEGATIVE (NEGATIVE); PROTEIN,URINE DIPSTICK NEGATIVE (NEGATIVE); URINE UROBILINOGEN 0.2 mg/dL (0.2 - 1)
[2019-02-27 18:43] LABS: INR 1.05; PROTHROMBIN TIME 14.2 seconds (11.9-14.5)
[2019-02-27 18:44] LABS: PARTIAL THROMBOPLASTIN TIME 31.1 seconds (23.8-35.5)
[2019-02-27 18:52] LABS: ALBUMIN 2.8 g/dL (3.5-5.0); ALBUMIN/GLOBULIN RATIO 0.6 (0.8-2.0); ALKALINE PHOSPHATASE 108 IU/L (40-150); ANION GAP 11.6 mmol/L (8-16); BLOOD UREA NITROGEN 7 mg/dL (7-26); BUN/CREATININE RATIO 11 (6-25); CALCIUM 9.4 mg/dL (8.4-10.2); CARBON DIOXIDE 33 mmol/L (22-29); CHLORIDE 96 mmol/L (98-107); CREATININE, SERUM 0.64 mg/dL (0.57-1.11); EST GLOMERULAR FILTRATION RATE > 60 ML/MIN (60-); GLUCOSE 84 mg/dL (74-118); SODIUM 138 mmol/L (136-145)
[2019-02-27 18:59] LABS: ALANINE AMINOTRANSFERASE < 6 IU/L (0-55); POTASSIUM 2.6 mmol/L (3.5-5.1)
[2019-02-27 19:12] LABS: RBC,URINE 0-5 /HPF (0-5); WBC,URINE (MAN) 0-5 /HPF (0-5)
[2019-02-27 19:13] LABS: BACTERIA,URINE FEW /HPF; EPITHELIAL CELLS,URINE FEW /LPF
[2019-02-27] MEDS ORDERED: POTASSIUM CHLORIDE 20 MEQ TAB CR PO STA (19:23)
[2019-02-27] MEDS ORDERED: METOPROLOL TART50 MG PO (19:30)
[2019-02-27] MEDS ORDERED: FLUTICASONE PRO16 GM INH (19:30)
[2019-02-27] MEDS ORDERED: POTASSIUM CHLORIDE 10MEQ EA PO STA (19:43)
[2019-02-27] MEDS ORDERED: POTASSIUM CHLORIDE 10MEQ/100ML 100 ML IV ONE ×3 (20:00→22:00)
[2019-02-27] MEDS ORDERED: VANCOMYCIN 1GM/NS 250 ML 250 ML IV ONE (20:15)
[2019-02-27] MEDS ORDERED: SODIUM CHLORIDE 0.9% 1000ML 1,000 ML ONE (20:19)
[2019-02-27 20:36] LABS: ABG PCO2 47 mmHg (41-51); ABG PH 7.42 (7.31-7.41)
[2019-02-27 20:37] LABS: ABG HCO3 30 mmol/L (23-28); ABG PO2 96 mmHg (80-105)
[2019-02-27] MEDS ORDERED: POTASSIUM CHLORIDE 10MEQ EA ONE (20:56)
--- OUTSIDE RECORDS SUMMARY | 2019-02-27 21:19 | XMS REPORT | Continuity of Care Document ---
Author Author [facility] Organization [facility] Address Unknown Phone Unavailable Care Team Providers Care Field Sampling Technician Name Role Phone [employer] Information [employer] Unavailable Unavailable Problems Problem Status Onset Date Classification Date Reported Comments Source 848.3 - SPRAIN OF RIBS Active 04/15/2013 [facility] [place] Secondary pleural effusion Active Problem 04/01/2018 [facility] Medications No Data Provided for This Section Allergies, Adverse Reactions, Alerts No Known Medication Allergies Immunizations No Data Provided for This Section Results Order Name Results Value Reference Range Date Interpretation Comments Source Body fluid lactate dehydrogenase measurement (enzymatic activity/volume) Body fluid lactate dehydrogenase measurement (enzymatic activity/volume) 78 04/01/2018 [facility] Body fluid protein measurement (mass/volume) Body fluid protein measurement (mass/volume) 4.1 04/01/2018 [facility] Erythrocyte sedimentation rate by Westergren method Erythrocyte sedimentation rate by Westergren method 62 0 - 20 03/30/2018 [facility] Estimated glomerular filtration rate (GFR) determination Estimated glomerular filtration rate (GFR) determination >60 60 03/30/2018 [facility] Glucose measurement Glucose measurement 89 74 - 118 03/30/2018 [facility] Serum or plasma anion gap Serum or plasma anion gap 11.8 8 - 16 03/30/2018 [facility] Serum or plasma calcium measurement (mass/volume) Serum or plasma calcium measurement (mass/volume) 8.7 8.4 - 10.2 03/30/2018 [facility] Serum or plasma carbon dioxide, total measurement (moles/volume) Serum or plasma carbon dioxide, total measurement (moles/volume) 22 22 - 29 03/30/2018 [facility] Serum or plasma chloride measurement (moles/volume) Serum or plasma chloride measurement (moles/volume) 107 98 - 107 03/30/2018 [facility] Serum or plasma creatinine measurement (mass/volume) Serum or plasma creatinine measurement (mass/volume) 0.55 0.57 - 1.11 03/30/2018 [facility] Serum or plasma magnesium measurement (mass/volume) Serum or plasma magnesium measurement (mass/volume) 1.8 1.3 - 2.1 03/30/2018 [facility] Serum or plasma potassium measurement (moles/volume) Serum or plasma potassium measurement (moles/volume) 3.8 3.5 - 5.1 03/30/2018 [facility] Serum or plasma sodium measurement (moles/volume) Serum or plasma sodium measurement (moles/volume) 137 136 - 145 03/30/2018 [facility] Serum or plasma urea nitrogen measurement (mass/volume) Serum or plasma urea nitrogen measurement (mass/volume) 7 7 - 26 03/30/2018 [facility] Serum or plasma urea nitrogen/creatinine mass ratio Serum or plasma urea nitrogen/creatinine mass ratio 13 6 - 25 03/30/2018 [facility] Serum DNA double strand antibody assay (units/volume) Serum DNA double strand antibody assay (units/volume) 1 0 - 9 03/29/2018 [facility] Body fluid eosinophil percentage Body fluid eosinophil percentage 10 03/29/2018 [facility] Body fluid lymphocyte count Body fluid lymphocyte count 52 03/29/2018 [facility] Body fluid monocyte count Body fluid monocyte count 1 03/29/2018 [facility] Body fluid other cells manual count Body fluid other cells manual count 37 03/29/2018 [facility] Determination of appearance of body fluid Determination of appearance of body fluid SL.CLOUDY 03/29/2018 [facility] Evaluation of color of body fluid Evaluation of color of body fluid RED 03/29/2018 [facility] Manual body fluid erythrocytes count (number/volume) Manual body fluid erythrocytes count (number/volume) 5024 03/29/2018 [facility] Manual body fluid leukocytes count (number/volume) Manual body fluid leukocytes count (number/volume) 520 03/29/2018 [facility] Specimen source identification of body fluid Specimen source identification of body fluid PERITONEAL 03/29/2018 [facility] Total cell count Total cell count 100 03/29/2018 [facility] Activated partial thromboplastin time (aPTT) in platelet poor plasma bycoagulation assay Activated partial thromboplastin time (aPTT) in platelet poor plasma bycoagulation assay 26.2 23.8 - 35.5 03/28/2018 [facility] Automated blood basophil count (count/volume) Automated blood basophil count (count/volume) 0.0 0.0 - 0.1 03/28/2018 [facility] Automated blood basophil count as percentage of total leukocytes Automated blood basophil count as percentage of total leukocytes 0.3 0.0 - 1.0 03/28/2018 [facility] Automated blood eosinophil count Automated blood eosinophil count 0.2 0.0 - 0.4 03/28/2018 [facility] Automated blood eosinophil count as percentage of total leukocytes Automated blood eosinophil count as percentage of total leukocytes 3.7 0.0 - 6.0 03/28/2018 [facility] Automated blood hematocrit (volume fraction) Automated blood hematocrit (volume fraction) 34.5 34.2 - 44.1 03/28/2018 [facility] Automated blood lymphocyte count as percentage ot total leukocytes Automated blood lymphocyte count as percentage ot total leukocytes 13.6 18.0 - 39.1 03/28/2018 [facility] Automated blood monocyte count as percentage of total leukocytes Automated blood monocyte count as percentage of total leukocytes 6.7 4.4 - 11.3 03/28/2018 [facility] Automated blood neutrophil count Automated blood neutrophil count 4.9 2.1 - 6.9 03/28/2018 [facility] Automated blood platelet count (count/volume) Automated blood platelet count (count/volume) 184 140 - 360 03/28/2018 [facility] Automated blood segmented neutrophil count as percentage of total leukocytes Automated blood segmented neutrophil count as percentage of total leukocytes 75.4 38.7 - 80.0 03/28/2018 [facility] Automated erythrocyte mean corpuscular hemoglobin (mass per erythrocyte) Automated erythrocyte mean corpuscular hemoglobin (mass per erythrocyte) 31.4 28 - 32 03/28/2018 [facility] Automated erythrocyte mean corpuscular hemoglobin concentration measurement (mass/volume) Automated erythrocyte mean corpuscular hemoglobin concentration measurement (mass/volume) 35.4 31 - 35 03/28/2018 [facility] Automated erythrocyte mean corpuscular volume Automated erythrocyte mean corpuscular volume 88.9 81 - 99 03/28/2018 [facility] Blood erythrocytes automated count (number/volume) Blood erythrocytes automated count (number/volume) 3.88 3.6 - 5.1 03/28/2018 [facility] Blood hemoglobin measurement (moles/volume) Blood hemoglobin measurement (moles/volume) 12.2 12.0 - 16.0 03/28/2018 [facility] Blood leukocytes automated count (number/volume) Blood leukocytes automated count (number/volume) 6.53 4.8 - 10.8 03/28/2018 [facility] Blood lymphocytes count (number/volume) Blood lymphocytes count (number/volume) 0.9 1.0 - 3.2 03/28/2018 [facility] Blood monocytes automated count (number/volume) Blood monocytes automated count (number/volume) 0.4 0.2 - 0.8 03/28/2018 [facility] INR in Platelet poor plasma by Coagulation assay INR in Platelet poor plasma by Coagulation assay 1.07 03/28/2018 [facility] Prothrombin time (PT) in platelet poor plasma by coagulation assay Prothrombin time (PT) in platelet poor plasma by coagulation assay 13.1 11.9 - 14.5 03/28/2018 [facility] Red Cell Distribution Width 14.1 11.7 - 14.4 03/28/2018 [facility] IM GRANULOCYTES % 0.3 0.0 - 1.0 03/28/2018 [facility] Absolute Immature Granulocyte (auto 0.02 0 - 0.1 03/28/2018 [facility] B-Type Natriuretic Peptide <10.0 0 - 100 03/28/2018 [facility] Plasma globulin measurement (mass/volume) Plasma globulin measurement (mass/volume) 3.2 2.3 - 3.5 03/28/2018 [facility] Serum or plasma alanine aminotransferase measurement (enzymatic activity/volume) Serum or plasma alanine aminotransferase measurement (enzymatic activity/volume) 9 0 - 55 03/28/2018 [facility] Serum or plasma albumin measurement (mass/volume) Serum or plasma albumin measurement (mass/volume) 2.6 3.5 - 5.0 03/28/2018 [facility] Serum or plasma albumin/globulin mass ratio Serum or plasma albumin/globulin mass ratio 0.8 0.8 - 2.0 03/28/2018 [facility] Serum or plasma alkaline phosphatase measurement (enzymatic activity/volume) Serum or plasma alkaline phosphatase measurement (enzymatic activity/volume) 103 40 - 150 03/28/2018 [facility] Serum or plasma creatine kinase MB measurement (mass/volume) Serum or plasma creatine kinase MB measurement (mass/volume) 0.50 0 - 5.0 03/28/2018 [facility] Serum or plasma creatine kinase measurement (enzymatic activity/volume) Serum or plasma creatine kinase measurement (enzymatic activity/volume) 12 29 - 168 03/28/2018 [facility] Serum or plasma protein measurement (mass/volume) Serum or plasma protein measurement (mass/volume) 5.8 6.5 - 8.1 03/28/2018 [facility] Serum or plasma total bilirubin measurement (mass/volume) Serum or plasma total bilirubin measurement (mass/volume) 0.2 0.2 - 1.2 03/28/2018 [facility] Troponin I measurement by highly sensitive enzyme immunoassay Troponin I measurement by highly sensitive enzyme immunoassay <0.001 0 - 0.300 03/28/2018 [facility] Aspartate Amino Transf (AST/SGOT) 17 5 - 34 03/28/2018 [facility] Pathology Reports No Data Provided for This [...] ADM Date DC Date Status Source OD [id number] 848.3 - SPRAIN OF RIBS JESI CATES 04/15/2013 Active TELLO Doan Discharged Inpatient [id number] ZORAIDA KING MD 03/28/2018 04/01/2018 [facility] Procedures Procedure Code Date Perfomer Comments Source Limited ultrasound of one or more fetuses [id number] 04/01/2018 [facility] Ultrasound of chest including mediastinum [id number] 03/31/2018 [facility] Thoracentesis with ultrasound guidance [id number] 03/29/2018 [facility] Ultrasound of first trimester, single fetus [id number] [facility] Assessment and Plan No Data Provided for This Section Plan of Care Plan of Care Date Source Discharge Date 04/01/18 6:19pm Disposition HOME, SELF-CARE Instructions/Education Provided Prescriptions See Medication Section 04/01/2018 [facility] Social History Social History Date Source No social history information available. 04/01/2018 [facility] Family History No Data Provided for This Section Advance Directives Order Name Results Value Date Source Advance Directives Advance Directives Directive Response Recorded Date/Time Does the patient have an advance directive? No 03/28/18 4:40pm If yes, is advance directive on file with [facility]? No 03/28/18 4:40pm If not on file with [facility] will patient provide a copy? No 03/28/18 4:40pm Do you have a Directive to Physician? No 03/28/18 4:40pm Do you have a Medical Power of Electric Relay Tester? No 03/28/18 4:40pm Do you have an [...] rights and responsibilities? Yes 03/28/18 4:40pm 04/01/2018 [facility] Functional Status No Data Provided for This Section
[2019-02-27] MEDS: CEFEPIME 2 GM/NS 0.9% 100 ML 100 ML IV SCH (22:37)
[2019-02-27 23:00] VITALS: BP 107/91
[2019-02-27] MEDS: METOPROLOL TARTRATE 25 MG TAB PO SCH (23:15)
[2019-02-27 23:56] LABS: CREATINE KINASE 19 IU/L (29-168)
[2019-02-28] MEDS ORDERED: POTASSIUM CHLORIDE 20 MEQ TAB CR PO ONE (01:00)
[2019-02-28] MEDS: HYDROCODONE/APAP 5MG-325MG TAB PO PRN ×3 (02:22→18:15)
[2019-02-28] MEDS: AZITHROMYCIN 500MG/NS 250 ML 250 ML IV SCH ×2 (02:22→09:00)
[2019-02-28 03:00] VITALS: BP 84/60
[2019-02-28 03:04] LABS: CREATINE KINASE 19 IU/L (29-168)
--- NOTE | 2019-02-28 03:05 | Consultation ---
DATE OF CONSULTATION: 02/27/2019 Pulmonary Medicine Consult REASON FOR REFERRAL: Abnormal chest radiography, rare disorders of the lung. HISTORY OF PRESENT ILLNESS: Ms. White is a pleasant 23-year-old female with abnormal chest radiography. She has been diagnosed with rare diagnoses of the lung. The patient with history of pleural effusions. She has had drainage of these pleural effusions that demonstrates some lymphocytosis. 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 She had a preceding diagnosis of lupus that was made by Rheumatology fellow and Rheumatology attending , although she never met Rheumatology attending. The patient's was positive. With time, I am told her reverted to negative. The patient maintains the need for recurrent pleurodesis. She eventually got pleurectomy on right side. She has had effusions in both lungs. She has had multiple imaging and studying and in September 2018, she had lymphatic duct stent placement. The pleurectomy was also in September 2018. These were done by Dr. Juarez. She changed pulmonary physicians from Dr. Christiano Prather and switched to Dr. Lanza. The patient has since developed right leg lymphedema. There is some history of small ascites never warranting drainage. Dr. Lanza has since recommended a trial of sirolimus. The patient, however, as well as mother complained that they were never told what the diagnosis was. I am consulted. PAST MEDICAL HISTORY: History of lupus previously, but this was revoked, it seems where the converted to negative. 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 once. Now, her child is 6-month-old. Mild perennial allergies. MEDICATIONS: Medication list reviewed per the chart record. ALLERGIES: NO KNOWN DRUG ALLERGIES. SOCIAL HISTORY: The patient smoked from age 17 to 21, less than half a pack a day. Only drank alcohol in her adolescent years, but not heavy anytime recently. No drugs. The patient is not working right now. FAMILY HISTORY: Noncontributory. REVIEW OF SYSTEMS: GENERAL: No weight changes. OPHTHALMOLOGIC: No double vision. ENT: No mouth ulcers. ENDOCRINE: No thyroid disease. LUNGS: No asthma. CARDIOVASCULAR: No heart attacks. GI: No constipation. : No blood in urine. DERMATOLOGIC: No rashes. MUSCULOSKELETAL: No arthritis. NEUROLOGIC: No seizures. PHYSICAL EXAMINATION: VITAL SIGNS: Afebrile, vital signs noted and reviewed per the chart record. GENERAL: In no acute distress. Alert and calm. HEENT: Normocephalic, atraumatic. NECK: Supple. Throat midline. LUNGS: Bilateral air entry, decreased at bases, rare rhonchi. CARDIOVASCULAR: S1, S2. No murmurs, rubs, or gallops. ABDOMEN: Soft, nontender. EXTREMITIES: No clubbing. No cyanosis. There is 2+ lymphedema on right leg, trace lymphedema on the left leg. NEUROLOGIC: Nonfocal. INTEGUMENT: Intact. No rash. LABORATORY DATA: A 3.6 potassium, 7 BUN, 0.6 creatinine. A 5 white count, 36 hematocrit, 275 platelets. Albumin 2.8. BNP less than 10. Urinalysis and UCG are unremarkable. LFTs unremarkable. Chest x-ray with bilateral pleural effusions, fluid overload versus intraparenchymal scarring. IMPRESSION AND PLAN: 1. Abnormal chest radiography, pleural effusions, previously known to be loculated. 2. Abnormal chest radiography, fluid overload versus interstitial changes such as lymphangiomyomatosis, which is actually more suspected issue. 3. Moderate hypoalbuminemia. 4. Recurrent chylous pleural effusion by history. 5. Chronic hypoxemia on 5 L/minute home oxygen. Ultrasound of right leg, no clot on venous side per preliminary report. Echo with LVEF 55% on preliminary report without significant abnormalities. We will check ultrasound and consider thoracentesis if there are sizable loculations. As patient had symptoms, we are likely going to proceed to noncontrast chest CT if the ultrasound is nondiagnostic. We will request records from outside since we do not know how long the patient will be here. I notified the patient I can continue to help with thoracentesis along the patient return to Dr. Lanza for complicated lymphatic management. As the patient and mom voiced that they do not have a clear diagnosis to be made, I informed them of undiagnosed disease network, so they can consider if it is true that Dr. Cantor has diagnosis as much as possible. The patient can continue her trial of sirolimus as well as Plaquenil, Bumex as well. She is on Flonase for allergies. , we will check for chylous bodies as well. Thank you very much, Dr. Cantor as well as Dr. Alcantar for allowing me to participate in the care of Ms. White. I spent greater than 50 minutes in reviewing the patient's case and condition and went over with the patient what to expect in detail. She is currently comfortable on this high level oxygen, but we will follow her closely. MD REJI Perez/JOSUE /[id number]
[2019-02-28 05:05] LABS: BASOPHILS % 0.4 % (0.0-1.0); EOSINOPHILS # (AUTO) 0.2 (0.0-0.4); EOSINOPHILS % 4.2 % (0.0-6.0); HEMATOCRIT 33.2 % (34.2-44.1); HEMOGLOBIN 9.8 g/dL (12.0-16.0); LYMPHOCYTES # (AUTO) 1.1 (1.0-3.2); LYMPHOCYTES % 23.9 % (18.0-39.1); MEAN CORPUSCULAR HEMOGLOBIN 24.1 pg (28-32); MEAN CORPUSCULAR HGB CONC 29.5 g/dL (31-35); MEAN CORPUSCULAR VOLUME 81.8 fL (81-99); MONOCYTES # (AUTO) 0.5 (0.2-0.8); MONOCYTES % 11.6 % (4.4-11.3); NEUTROPHILS # (AUTO) 2.7 (2.1-6.9); NEUTROPHILS % 59.5 % (38.7-80.0); PLATELET COUNT 262 x10e3/uL (140-360); RED BLOOD COUNT 4.06 x10e6/uL (3.6-5.1); RED CELL DISTRIBUTION WIDTH 16.3 % (11.7-14.4)
[2019-02-28 05:21] LABS: CREATINE KINASE 18 IU/L (29-168)
[2019-02-28 06:02] LABS: ALBUMIN 2.5 g/dL (3.5-5.0); ALBUMIN/GLOBULIN RATIO 0.6 (0.8-2.0); ALKALINE PHOSPHATASE 98 IU/L (40-150); ANION GAP 10.8 mmol/L (8-16); BLOOD UREA NITROGEN 8 mg/dL (7-26); BUN/CREATININE RATIO 13 (6-25); CALCIUM 8.8 mg/dL (8.4-10.2); CARBON DIOXIDE 28 mmol/L (22-29); CHLORIDE 100 mmol/L (98-107); CREATININE, SERUM 0.61 mg/dL (0.57-1.11); EST GLOMERULAR FILTRATION RATE > 60 ML/MIN (60-); GLUCOSE 104 mg/dL (74-118); POTASSIUM 3.8 mmol/L (3.5-5.1); SODIUM 135 mmol/L (136-145)
[2019-02-28 06:07] LABS: ALANINE AMINOTRANSFERASE < 6 IU/L (0-55)
[2019-02-28 07:00] VITALS: BP 90/61
[2019-02-28] MEDS: CEFEPIME 2 GM/NS 0.9% 100 ML 100 ML IV SCH ×2 (08:38→19:58)
--- NOTE | 2019-02-28 08:43 | Diagnostic Imaging Report ---
Chest ultrasound. History: Pleural effusion. Comparison: Chest x-ray from 02/27/2019. Discussion: Transverse and longitudinal sonographic imaging of the bilateral posterior chest was performed. Small bilateral pleural effusions are identified. IMPRESSION: Small bilateral pleural effusions. Signed by: Jasiel Li on 02/28/2019 8:40 AM
[2019-02-28] MEDS ORDERED: SODIUM CHLORIDE 0.9% 250ML 250 ML ONE (08:49)
[2019-02-28 09:18] VITALS: BP 90/61
[2019-02-28 11:00] VITALS: BP 98/59
[2019-02-28] MEDS: ONDANSETRON HCL INJ 2MG/ML 2ML 2 MG/ML VIAL IV PRN ×3 (11:15→18:14)
[2019-02-28] MEDS: METOPROLOL TARTRATE 25 MG TAB PO SCH ×2 (11:20→21:00)
--- NOTE | 2019-02-28 11:36 | Diagnostic Imaging Report ---
CT of the chest, high resolution, without contrast, 02/28/2019. History: Interstitial/chylous lung disease. Comparison: Chest x-ray 02/27/2019. Technique: Multidetector CT scanning of the chest was performed from the level of the thoracic inlet to the upper abdomen without IV or oral contrast. Thin collimation scanning during the inspiratory and expiratory phases as well as in the prone position was performed. Sagittal and coronal multiplanar reformations were obtained. RADIATION DOSE: Total DLP: 1304 mGy*cm Dose modulation, iterative reconstruction, and/or weight based adjustment of the mA/kV was utilized to reduce the radiation dose to as low as reasonably achievable. Discussion: Chest: Evaluation of the heart and mediastinal structures is limited secondary to lack of intravenous contrast. The heart and aorta are normal in size. However, a thick rim of fluid is seen is surrounding the heart and extending superiorly, measuring up to 3.6 cm along its left superior aspect. There is prominence of the main pulmonary artery which measures 3.1 cm in diameter. The thyroid is unremarkable. Edema is present throughout the mediastinal fat making evaluation for adenopathy difficult. The central airways are patent. There is circumferential bilateral pleural thickening/fluid. Bilateral small multiloculated pleural effusions are present at the lung bases. There is diffuse bilateral peribronchovascular thickening. Patchy consolidation is present throughout the right lower lobe, lingular, and both lower lobes. Limited evaluation of the upper abdomen shows normal adrenal glands. Bones and soft tissues: No acute abnormality. Multiple hyperdensities are seen along the anterior aspect of the vertebral bodies consistent with prior lymphangiogram. A stent is also seen anteriorly along the mid thoracic vertebral bodies likely within the thoracic duct. IMPRESSION: 1. Diffuse bilateral interstitial prominence and multifocal consolidation. Although the findings may secondary to CHF and atelectasis, superimposed pneumonia cannot be excluded. 2. Small bilateral multiloculated pleural effusions. 3. Possible pericardial effusion versus medial loculated pleural effusion. Consider further evaluation with echocardiogram. Signed by: Jasiel Li on 02/28/2019 11:32 AM
[2019-02-28 14:17] LABS: CREATINE KINASE 18 IU/L (29-168)
[2019-02-28 15:00] VITALS: BP 104/69
[2019-02-28] MEDS ORDERED: SIROLIMUS 1 MG PO SCH (17:00)
[2019-02-28 19:34] VITALS: BP 101/61
[2019-02-28] MEDS: HYDROXYCHLOROQUINE SULFATE 200 MG TAB PO SCH (20:42)
[2019-02-28] MEDS: SIROLIMUS 1 MG PO SCH (21:18)
[2019-02-28] MEDS: KETOROLAC TROMETHAMINE 30 MG/ML VIAL IV PRN (21:45)
--- NOTE | 2019-02-28 21:55 | History and Physical ---
HISTORY OF PRESENT ILLNESS: A 23-year-old female, who has a past medical history positive for drug-induced lupus, no other medical condition, came here with cough, phlegm, and shortness of breath. She was found to have bilateral small pleural effusion and bilateral lung infiltrates. She was diagnosed with bilateral pneumonia, started on IV antibiotics. REVIEW OF SYSTEMS: CARDIOVASCULAR: No chest pain or palpitation. RESPIRATORY: Cough and shortness of breath. GASTROINTESTINAL: No nausea. No vomiting. No diarrhea. GENITOURINARY: No frequency. No dysuria. ALLERGIES: NOT ALLERGIC TO ANY MEDICATION. PAST MEDICAL HISTORY: Positive for drug-induced lupus, which resolved. SOCIAL HISTORY: She does not smoke. She does not drink. PHYSICAL EXAMINATION: VITAL SIGNS: Blood pressure 101/61, temperature is 98 degrees, heart rate is 100 per minute, respiratory rate 25 per minute, and oxygen saturation 98%. LABORATORY DATA: Blood cultures negative. Chest x-ray showed bilateral infiltrates with very small bilateral pleural effusions. On the BMP; sodium 135, potassium 3.8, chloride 100, CO2 of 28, BUN 8, creatinine 0.81, and glucose 104. On the CBC, white count 4.48, hemoglobin 9.8, hematocrit 33.2, and platelet count 262,000. PT 14.2, INR 1.05, and PTT 31.1. AST 16, ALT 6, total bilirubin 0.1, and alkaline phosphatase 98. IMPRESSION: Bilateral pneumonia. PLAN OF TREATMENT: Continue cefepime and Zithromax. Continue metoprolol 12.5 mg twice a day, Zofran 4 mg IV every 4 hours as needed, hydroxychloroquine 200 mg at bedtime, and [place] one tablet every 6 hours as needed. MD AARON Burns/MODL /[id number]
[2019-02-28] MEDS: MELATONIN 3 MG TAB PO SCH (23:30)
[2019-03-01] VITALS (8 sets, daily range): BP systolic 90–114; BP diastolic 54–88
--- NOTE | 2019-03-01 01:45 | History and Physical ---
ADDENDUM: Dr. Lee has been consulted from the Pulmonary point of view. We are going to continue monitoring the patient very carefully. The patient is doing better. MD AARON Burns/JOSUE /[id number]
[2019-03-01 05:47] LABS: ANION GAP 9.8 mmol/L (8-16); BLOOD UREA NITROGEN 10 mg/dL (7-26); BUN/CREATININE RATIO 14 (6-25); CALCIUM 9.5 mg/dL (8.4-10.2); CARBON DIOXIDE 30 mmol/L (22-29); CHLORIDE 100 mmol/L (98-107); CREATININE, SERUM 0.71 mg/dL (0.57-1.11); EST GLOMERULAR FILTRATION RATE > 60 ML/MIN (60-); GLUCOSE 86 mg/dL (74-118); POTASSIUM 3.8 mmol/L (3.5-5.1); SODIUM 136 mmol/L (136-145)
[2019-03-01] MEDS: BUMETANIDE 1 MG TAB PO SCH ×2 (08:23→18:00)
[2019-03-01] MEDS: CEFEPIME 2 GM/NS 0.9% 100 ML 100 ML IV SCH ×2 (08:23→21:02)
[2019-03-01] MEDS ORDERED: POTASSIUM CHLORIDE 20 MEQ TAB CR PO SCH (09:00)
[2019-03-01] MEDS ORDERED: HYDROXYCHLOROQUINE SULFATE 200 MG TAB PO SCH (09:00)
[2019-03-01] MEDS: AZITHROMYCIN 500MG/NS 250 ML 250 ML IV SCH (09:07)
[2019-03-01] MEDS: KETOROLAC TROMETHAMINE 30 MG/ML VIAL IV PRN ×2 (09:10→16:10)
[2019-03-01] MEDS: METOPROLOL TARTRATE 25 MG TAB PO SCH (09:12)
--- NOTE | 2019-03-01 09:56 | Diagnostic Imaging Report ---
Abdominal ultrasound, limited. History: Ascites. Comparison: None available. Discussion: Transverse and longitudinal sonographic images of the 4 quadrants the abdomen were obtained demonstrating a moderate amount of free fluid. IMPRESSION: Moderate ascites. Signed by: Jasiel Li on 03/01/2019 9:53 AM
--- NOTE | 2019-03-01 12:13 | Progress Note ---
DATE: 03/01/2019 Internal Medicine Progress Note SUBJECTIVE: The patient is complaining of shortness of breath like before. OBJECTIVE: HEART: Showed regular rhythm. Normal S1 and S2 sound. LUNGS: Showing crackles on both lungs. VITAL SIGNS: Blood pressure 114/88, temperature 97.9, heart rate 96 per minute, respiratory rate 23 per minute, and oxygen saturation 100%. LABORATORY DATA: On the BMP; sodium 136, potassium 3.8, chloride 100, CO2 of 30, BUN 10, creatinine 0.71, and glucose 86. CBC; white blood count 4.48, hemoglobin 9.8, hematocrit 33.2, platelet count 262,000. PT 14.2, INR 1.05, and PTT 31.1. AST 16, ALT 6, total bilirubin 0.1, and alkaline phosphatase 98. IMPRESSION: 1. Bilateral pneumonia. 2. History of bilateral pleural effusions. 3. History of lupus. PLAN OF TREATMENT: Continue cefepime twice a day, Zithromax 250 mg IV daily, metoprolol 12.5 mg twice a day, Zofran 4 mg IV q.4 hours as needed, Bumex 1 mg twice a day, [place] 1 tablet q.6 hours as needed, potassium chloride 40 mEq daily, Toradol 10 mg IV q.6 hours as needed, hydroxychloroquine sulfate 200 mg at bedtime at bedtime. Continue current medication regimen. Continue monitoring BUN, creatinine, and electrolytes. MD AARON Burns/JOSUE /[id number]
[2019-03-01] MEDS: HYDROCODONE/APAP 5MG-325MG TAB PO PRN (16:11)
--- NOTE | 2019-03-01 16:51 | Diagnostic Imaging Report ---
Procedure: Ultrasound-guided paracentesis hot press operator: Jasiel Li M.D. Pre-operative diagnosis: Ascites Post-operative diagnosis: Ascites Conscious Sedation: None. The patient's heart rate and pulse oximetry were continuously monitored by the IR nurse. Additional Medications: Lidocaine 1% for local anesthesia Estimated blood loss: Less than 1 cc. Specimen: 2600 cc of milky yellow fluid Implants: None TECHNIQUE/FINDINGS: Informed consent was obtained from the patient and documented in the medical record. The patient was placed in the supine position. Initial ultrasound demonstrated ascites. The right lower abdomen was prepped and draped in standard sterile fashion. 1% lidocaine was infiltrated into the skin and subcutaneous tissues for local anesthesia. Then under continuous sonographic guidance, a 5 Fr catheter was advanced into the peritoneal space. The catheter was connected to vacuum bottle with subsequent evacuation of 2600 cc of fluid. The catheter was removed and sterile dressing was applied. Sample was sent to the lab. The patient tolerated the procedure well. IMPRESSION: Successful ultrasound-guided paracentesis. Signed by: Jasiel Li on 03/01/2019 4:47 PM
[2019-03-01 17:57] LABS: BODY FLUID APPEARANCE TURBID; BODY FLUID TYPE PERITONEAL
[2019-03-01 18:33] LABS: RBC,BODY FLUID 772 cells/uL; WBC,BODY FLUID 817 cells/uL
[2019-03-01 19:31] LABS: LYMPHOCYTES,BODY FLUID 39 %; MONO/MACROPHG,BODY FLUID 38 %; NEUTROPHILS,BODY FLUID 10 %; OTHER CELLS,BODY FLUID 13 %
[2019-03-01] MEDS: SIROLIMUS 1 MG PO SCH (21:02)
[2019-03-01] MEDS: HYDROXYCHLOROQUINE SULFATE 200 MG TAB PO SCH (21:02)
[2019-03-01] MEDS: MELATONIN 3 MG TAB PO SCH (21:03)
[2019-03-02] VITALS (10 sets, daily range): BP systolic 86–99; BP diastolic 52–72
[2019-03-02] MEDS: KETOROLAC TROMETHAMINE 30 MG/ML VIAL IV PRN (01:29)
[2019-03-02] MEDS: METOPROLOL TARTRATE 25 MG TAB PO SCH ×3 (01:29→21:03)
[2019-03-02 05:39] LABS: ALANINE AMINOTRANSFERASE < 6 IU/L (0-55); ALBUMIN 2.3 g/dL (3.5-5.0); ALBUMIN/GLOBULIN RATIO 0.6 (0.8-2.0); ALKALINE PHOSPHATASE 99 IU/L (40-150); ANION GAP 8.6 mmol/L (8-16); BLOOD UREA NITROGEN 13 mg/dL (7-26); BUN/CREATININE RATIO 21 (6-25); CALCIUM 9.1 mg/dL (8.4-10.2); CARBON DIOXIDE 29 mmol/L (22-29); CHLORIDE 101 mmol/L (98-107); CHOL/HDL RATIO 4.5 (3.0-3.6); CHOLESTEROL 126 MD/DL (0-199); CREATININE, SERUM 0.62 mg/dL (0.57-1.11); EST GLOMERULAR FILTRATION RATE > 60 ML/MIN (60-); GLUCOSE 99 mg/dL (74-118); HDL CHOLESTEROL 28 MG/DL (40-60); LDL CHOLESTEROL 80 MG/DL (60-130); MAGNESIUM 1.5 MG/DL (1.3-2.1); PHOSPHORUS 4.6 MG/DL (2.3-4.7); POTASSIUM 3.6 mmol/L (3.5-5.1); SODIUM 135 mmol/L (136-145); TRIGLYCERIDES 88 MG/DL (0-149)
[2019-03-02] MEDS: HYDROCODONE/APAP 5MG-325MG TAB PO PRN (06:28)
[2019-03-02] MEDS: AZITHROMYCIN 500MG/NS 250 ML 250 ML IV SCH (08:29)
[2019-03-02] MEDS: BUMETANIDE 1 MG TAB PO SCH ×2 (08:29→16:23)
[2019-03-02] MEDS ORDERED: DICLOFENAC SOD 1% GEL 100 GM TUBE TP PRN (09:15)
[2019-03-02] MEDS: ONDANSETRON HCL INJ 2MG/ML 2ML 2 MG/ML VIAL IV PRN (09:22)
[2019-03-02] MEDS: POTASSIUM CHLORIDE 10MEQ EA PO SCH (09:30)
[2019-03-02] MEDS: CEFEPIME 2 GM/NS 0.9% 100 ML 100 ML IV SCH ×2 (10:06→19:51)
--- NOTE | 2019-03-02 10:42 | Progress Note ---
DATE: 03/02/2019 SUBJECTIVE: The patient is feeling better. PHYSICAL EXAMINATION: VITAL SIGNS: Blood pressure is 88/54, temperature 38.5, heart rate 89 per minute, respiratory rate 19 per minute, and oxygen saturation 100%. HEART: Regular rhythm. Normal S1, S2 sound. LUNGS: Clear bilaterally. LABORATORY DATA: On the blood work, we have BMP with a sodium of 135, potassium 3.6, chloride 101, CO2 of 29, BUN 13, creatinine 0.62, and glucose 99 on the CBC. White blood count 4.48, hemoglobin 9.8, hematocrit 33.2, and platelet count 262,000. PT 14.2, INR 1.05, and PTT 31.1. AST 14, ALT 6, total bilirubin 0.1, and alkaline phosphatase 99. FINAL IMPRESSION: 1. Bilateral pneumonia. 2. History of lupus. PLAN OF TREATMENT: Continue cefepime 1 g IV twice a day, Zithromax 250 mg IV daily, metoprolol 12.5 mg twice a day, Bumex 1 mg twice a day, Zofran 4 mg IV q.4 hours as needed, [place] 1 tablet q.6 hours as needed for [id number] pain, potassium chloride 40 mEq daily, Toradol 10 mg IV q.6 hours, hydroxychloroquine sulfate 200 mg at bedtime, and melatonin 6 mg at bedtime. She was noted to have ascites, so she has had a paracentesis done so far, cultures are negative. No evidence of any bacteria in the ascites fluid. Continue current IV antibiotic therapy. The patient is doing better. MD AARON Burns/JOSUE /[id number]
[2019-03-02] MEDS: SIROLIMUS 1 MG PO SCH (20:28)
[2019-03-02] MEDS: HYDROXYCHLOROQUINE SULFATE 200 MG TAB PO SCH (20:28)
[2019-03-02] MEDS: MELATONIN 3 MG TAB PO SCH (21:43)
[2019-03-03] VITALS (8 sets, daily range): BP systolic 93–100; BP diastolic 62–70
[2019-03-03 05:38] LABS: ANION GAP 8.4 mmol/L (8-16); BLOOD UREA NITROGEN 13 mg/dL (7-26); BUN/CREATININE RATIO 24 (6-25); CALCIUM 9.2 mg/dL (8.4-10.2); CARBON DIOXIDE 29 mmol/L (22-29); CHLORIDE 99 mmol/L (98-107); CREATININE, SERUM 0.54 mg/dL (0.57-1.11); EST GLOMERULAR FILTRATION RATE > 60 ML/MIN (60-); GLUCOSE 102 mg/dL (74-118); POTASSIUM 3.4 mmol/L (3.5-5.1); SODIUM 133 mmol/L (136-145)
[2019-03-03] MEDS: HYDROCODONE/APAP 5MG-325MG TAB PO PRN ×2 (08:34→17:59)
[2019-03-03] MEDS: BUMETANIDE 1 MG TAB PO SCH ×2 (08:34→16:42)
[2019-03-03] MEDS: POTASSIUM CHLORIDE 10MEQ EA PO SCH (08:34)
[2019-03-03] MEDS: CEFEPIME 2 GM/NS 0.9% 100 ML 100 ML IV SCH ×2 (08:34→19:51)
[2019-03-03] MEDS ORDERED: POTASSIUM CHLORIDE 10MEQ EA PO SCH (09:00)
[2019-03-03] MEDS ORDERED: POTASSIUM CHLORIDE 20 MEQ TAB CR PO ONE (09:30)
[2019-03-03] MEDS: METOPROLOL TARTRATE 25 MG TAB PO SCH ×2 (10:23→21:10)
--- NOTE | 2019-03-03 11:14 | Progress Note ---
DATE: 03/03/2019 Internal Medicine Progress Note SUBJECTIVE: The patient is sleeping right now. PHYSICAL EXAMINATION: VITAL SIGNS: Blood pressure 99/64, it was lower before, temperature 98.2, heart rate 120 per minute, respiratory rate 16 per minute, and oxygen saturation 100%. HEART: Showed regular rhythm. Normal S1 and S2 sound. LUNGS: Showing crackles bilateral upper and lower lobes. LABORATORY DATA: On the BMP; sodium 133, potassium 3.4, chloride 99, CO2 of 29, BUN 13, creatinine 0.54, and glucose 102. On CBC; white blood count 4.48, hemoglobin 8.8, hematocrit 33.2, and platelet count 262,000. FINAL IMPRESSION: 1. Bilateral pneumonia. 2. Questionable congestive heart failure. 3. History of lupus. 4. Hypokalemia. 5. Hypotension. 6. Sinus tachycardia. 7. Obesity. PLAN OF TREATMENT: We are going to continue oxygen continue cefepime and continue metoprolol low dose 12.5 mg twice a day, Zofran 4 mg IV q.4 hours as needed, [place] 1 tablet q.6 hours as needed, diclofenac q.6 hours, melatonin 6 mg at bedtime, Bumex 1 mg twice a day, potassium chloride 40 mEq daily, hydroxychloroquine 200 mg daily. I am going to replace the potassium today. Recheck the potassium level tomorrow along with the magnesium levels along with a BMP. The patient had episode of hypotension, so she will remain in the [facility], so far the ascites fluid culture is negative. MD AARON Burns/JOSUE /[id number]
[2019-03-03] MEDS: HYDROXYCHLOROQUINE SULFATE 200 MG TAB PO SCH (20:03)
[2019-03-03] MEDS: SIROLIMUS 1 MG PO SCH (20:03)
[2019-03-03] MEDS: MELATONIN 3 MG TAB PO SCH (23:00)
[2019-03-04 03:00] VITALS: BP 111/73
[2019-03-04 05:44] LABS: ANION GAP 9.7 mmol/L (8-16); BLOOD UREA NITROGEN 13 mg/dL (7-26); BUN/CREATININE RATIO 23 (6-25); CALCIUM 9.4 mg/dL (8.4-10.2); CARBON DIOXIDE 30 mmol/L (22-29); CHLORIDE 101 mmol/L (98-107); CREATININE, SERUM 0.56 mg/dL (0.57-1.11); EST GLOMERULAR FILTRATION RATE > 60 ML/MIN (60-); GLUCOSE 101 mg/dL (74-118); POTASSIUM 3.7 mmol/L (3.5-5.1); SODIUM 137 mmol/L (136-145)
[2019-03-04 08:00] VITALS: BP 100/50
[2019-03-04] MEDS: CEFEPIME 2 GM/NS 0.9% 100 ML 100 ML IV SCH (08:15)
[2019-03-04 09:00] VITALS: BP 100/50
[2019-03-04] MEDS: BUMETANIDE 1 MG TAB PO SCH ×2 (09:03→16:56)
[2019-03-04] MEDS: POTASSIUM CHLORIDE 10MEQ EA PO SCH (09:03)
[2019-03-04] MEDS ORDERED: SODIUM CHLORIDE 0.9% 250ML 250 ML ONE (09:24)
[2019-03-04] MEDS: METOPROLOL TARTRATE 25 MG TAB PO SCH (10:00)
[2019-03-04 12:00] VITALS: BP 110/60
[2019-03-04 16:00] VITALS: BP 116/62
--- NOTE | 2019-03-05 00:04 | Discharge Summary ---
HISTORY: The patient is 23-year-old female with past medical history positive for lupus, came to the ER with shortness of breath. She was found to have bilateral pneumonia, started on IV antibiotics. She is going home today. She had also ascites, culture on the ascitic fluid came back negative. PHYSICAL EXAMINATION: VITAL SIGNS: Blood pressure 100/50, temperature is 98.6, heart rate 111 per minute, respiratory rate 24 per minute, and oxygen saturation 100%. HEART: Regular rhythm. Normal S1 and S2 sound. LUNGS: Show bilateral crackles. ABDOMEN: Soft. LABORATORY DATA: On the BMP; sodium 137, potassium 3.7, chloride 101, CO2 of 30, BUN 13, creatinine 0.56, and glucose 101. On the CBC, white count 4.48, hemoglobin 9.8, hematocrit 33.2, and platelet count 262,000. PT 14.2, INR 1.05, PTT 31.1. AST 14, ALT 6, total bilirubin 0.1, and alkaline phosphatase 99. IMPRESSION: 1. Bilateral pneumonia. 2. History of lupus. PLAN OF TREATMENT: She is going to continue Ceftin 500 mg twice a day for 10 days, Zithromax 250 mg daily for 10 days. She is taking metoprolol 12.5 mg twice a day and [place] 1 tablet q.6 hours as needed for pain, melatonin 6 mg at bedtime. She is also on hydroxychloroquine sulfate 200 mg daily at bedtime, potassium chloride 20 mEq daily and Bumex 1 mg twice a day. The patient is going to follow with her primary care physician in a week. MD AARON Burns/JOSUE /[id number]
== END 2019-03-04 16:30 | disposition home or self-care (01) | DRG 193 ==
LOC: ER 16:45 → ERHOLD 21:16 → ICU 23:10
PROVIDERS: ADMIT Internal Medicine; ATTEND Internal Medicine
PROC: 0W9G3ZX Drainage of Peritoneal Cavity, Percutaneous Approach, Diagnostic (ICD-10-PCS; principal; 2019-03-01)
DX: J18.9 Pneumonia, unspecified organism (principal); J96.21 Acute and chronic respiratory failure with hypoxia; J84.81 Lymphangioleiomyomatosis; R18.8 Other ascites; J94.0 Chylous effusion; E88.09 Other disorders of plasma-protein metabolism, not elsewhere classified; E87.6 Hypokalemia; M32.0 Drug-induced systemic lupus erythematosus; E66.9 Obesity, unspecified; R00.0 Tachycardia, unspecified; I95.9 Hypotension, unspecified; Z79.899 Other long term (current) drug therapy; Z68.34 Body mass index [BMI] 34.0-34.9, adult; I50.9 Heart failure, unspecified
CPT/HCPCS: 36415; 36600; 49083; 71046; 71250; 74470; 76604; 76705; 80048; 80053; 80061; 81001; 81025; 82550; 82553; 82805; 82945; 83605; 83615; 83735; 83880; 84100; 84157; 84484; 85025; 85610; 85730; 87040; 87086; 87205; 88112; 88305; 89051; 93005; 93306; 93971; 99284; C1729; J0456; J1885; J2405; J3370; J3480; J7030; J7050

== ENCOUNTER 2019-12-07 16:43 | Emergency (ER) | payer OTHER ==
[~2019-12-07] VITALS: Ht 149.9 cm; Wt 78.0 kg
[~2019-12-07 16:43] MED LIST: BUMETANIDE1 MG PO; FLUTICASONE PRO16 GM INH; HYDROXYCHLOROQ200 MG PO; METOPROLOL TART50 MG PO; RAPAMUNE1 MG PO
--- OUTSIDE RECORDS SUMMARY | 2019-12-07 16:47 | XMS REPORT ---
Author Author [facility] Organization [facility] Address [address] [place] [address] Phone Unavailable Care Team Providers Care [employer] Forming Equipment Operator Name Role Phone NONSTAFF PCP Unavailable FERNANDO, ZORAIDA Attphys Unavailable FERNANDO, ZORAIDA Admphys Unavailable Problems Condition Name Condition Details Condition Category Status Onset Date Resolution Date Last Treatment Date Treating Clinician Comments Source 848.3 - SPRAIN OF RIBS 848. 3 - SPRAIN OF RIBS Active 04/15/2013 [facility] [place] Diagnosis Active 2013-04-15 00:01:00 2013-04-15 13:10:00 [facility] [place] Urinary Tract Infection Urin astrid Tract Infection Active 11/09/2013 [facility] Problem Active 2013-11-09 14:38: 52 [facility] Abdominal Pain Abdo kota Pain Active 11/09/2013 [facility] Problem Active 2013-11-09 14:38:52 [facility] Sprained Ribs Spra ined Ribs Active 11/09/2013 [facility] Problem Active 2013-11-09 14:38:52 [facility] Limb Pain Limb Pain Active 11/09/2013 [facility] Problem Active 2013-11-09 14:38:52 [facility] Numbness (Hypesthesia) Numb ness (Hypesthesia) Active 11/09/2013 [facility] Problem Active 2013-11-09 14:38:52 [facility] Fatigue Fati sonya Active 11/09/2013 [facility] Problem Active 2013-11-09 14:38:52 [facility] Muscle Weakness Generalized Mu scle Weakness Generalized Active 11/09/2013 [facility] Problem Active 2013-11-09 14:38: 52 [facility] Nausea With Vomiting Naus ea With Vomiting Active 11/09/2013 [facility] Problem Active 2013-11-09 14:38:52 [facility] Systemic Lupus Erythematosus S ystemic Lupus Erythematosus Active 11/09/2013 [facility] Problem Active 2013-11-09 14:38:52 [facility] 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 Active 11/09/2013 [facility] Problem Active 2013-11-09 14:38:52 [facility] Allergies, Adverse Reactions, Alerts Allergy Name Allergy Type Status Severity Reaction(s) Onset Date Inacti ve Date Treating Clinician Comments Source No Known Drug Allergies No Known Drug Allergies Active [facility] Social History Social Habit Start Date Stop Date Quantity Comments Source Social History 2013-11-09 14:38:52 2013-11-09 14:38:52 [facility] Medications Ordered Medication Name Filled Medication Name Start Date Stop Da te Current Medication? Ordering Clinician Indication Dosage Frequency Signature (SIG) Comments Components Source Levocetirizine Dihydrochloride 5 MG Oral Tablet 2013-11-09 14:38 :52 Yes (Active) [facility] MonoNessa TABS 2013-11-09 14:38:52 Yes (Act manuel) [facility] Montelukast Sodium 10 MG Oral Tablet 2013-11-09 14:38:52 Ye s (Active) [facility] TobraDex 0.3-0.1 % Ophthalmic Ointment 2013-11-02 05:00:00 Yes ; Start Date: 11/02/2013; End Date: (Active) [facility] Tylenol TABS 2013-05-06 20:17:59 Yes (Activ e) [facility] Singulair TABS 2013-05-06 20:17:59 Yes (Act manuel) [facility] Lo Loestrin Fe TABS 2013-05-06 20:17:59 Yes (Active) [facility] Ibuprofen 600 MG Oral Tablet 2013-04-15 05:00:00 Yes ; Start Date: 04/15/2013; End Date: (Active) [facility] Singulair 4 MG Oral Tablet Chewable 2013-03-24 20:34:02 Yes (Active) [facility] Hydrocodone-Acetaminophen 2.5-325 MG Oral Tablet 2013-03-21 05:00:00 Yes ; Start Date: 03/21/2013 (Active) [facility] Cefdinir 300 MG Oral Capsule 2013-03-18 05:00:00 Yes ; Start Date: 03/18/2013; End Date: 03/25/2013 (Active) [facility] Procedures This patient has no known procedures. Plan of Care Planned Activity Planned Date Details Comments Source Future Scheduled Test Plan of Care [code = 05751-2] [facility] Future Scheduled Test Plan of Care [code = 69027-0] [facility] Future Scheduled Test Plan of Care [code = 32196-9] [facility] Future Scheduled Test Plan of Care [code = 31047-2] [facility] Future Scheduled Test Plan of Care [code = 70058-1] [facility] Future Scheduled Test Plan of Care [code = 61267-6] [facility] Future Scheduled Test Plan of Care [code = 47221-1] [facility] Future Scheduled Test Plan of Care [code = 57704-0] [facility] Future Scheduled Test Plan of Care [code = 12318-4] [facility] Encounters Start Date/Time End Date/Time Encounter Type Admission Type [facility] Care Department Encounter ID Source 2018-10-26 14:25:00 Inpatient [facility] MED [id number] [facility] 2018-08-19 14:15:00 Inpatient [facility] [id number] [facility] 2019-09-01 13:41:00 2019-09-01 13:41:00 Outpatient [facility] PUL [id number] [facility] 2019-05-09 09:11:00 2019-05-09 09:11:00 Outpatient [facility] PUL [id number] [facility] 2019-02-27 21:16:00 2019-02-27 21:16:00 Admitted Inpatient 1 FERNANDO ZORAIDA [facility] [id number] [facility] 2018-11-09 08:48:00 2018-11-09 08:48:00 Outpatient [facility] MED [id number] [facility] 2018-03-28 17:39:00 2018-04-01 18:19:00 Discharged Inpatient 1 ZORAIDA KING [facility] [id number] [facility] 2013-11-09 09:38:53 2013-11-09 14:38:52 [facility] [id number] [facility] 2013-11-09 09:38:53 2013-11-09 09:38:52 Outpatient [facility] [id number] 2013-11-03 17:17:00 2013-11-03 22:16:59 [facility] [id number] [facility] 2013-11-03 17:17:00 2013-11-03 17:16:59 Outpatient [facility] [id number] 2013-10-31 09:48:54 2013-10-31 14:48:53 [facility] [id number] [facility] 2013-10-31 09:48:54 2013-10-31 09:48:53 Outpatient [facility] [id number] 2013-05-06 15:17:59 2013-05-06 20:17:59 [facility] [id number] [facility] 2013-05-06 15:17:59 2013-05-06 15:17:59 Outpatient [facility] [id number] 2013-04-15 12:17:15 2013-04-15 17:17:15 [facility] [id number] [facility] 2013-04-15 12:59:00 2013-04-15 12:59:00 OD [facility] [id number] [facility] [place] 2013-04-15 12:17:15 2013-04-15 12:17:15 Outpatient [facility] [id number] 2013-03-24 15:34:02 2013-03-24 20:34:02 [facility] [id number] [facility] 2013-03-24 15:34:02 2013-03-24 15:34:02 Outpatient [facility] [id number] 2013-03-22 15:18:05 2013-03-22 20:18:04 [facility] [id number] [facility] 2013-03-22 15:18:05 2013-03-22 15:18:04 Outpatient [facility] [id number] 2013-03-21 17:17:56 2013-03-21 22:17:56 AUDIT [facility] [id number] [facility] 2013-03-21 17:17:56 2013-03-21 17:17:56 Outpatient [facility] [id number] 2013-03-18 15:17:58 2013-03-18 20:17:58 AUDIT [facility] [id number] [facility] 2013-03-18 15:17:58 2013-03-18 15:17:58 Outpatient [facility] [id number] Results Test Description Test Time Test Comments Results Result Comments Source US GUIDED PARACENTESIS 2019-03-01 16:47:00 [place] [address] Patient Name: RYAN BRAND MR #: [id number] : 1995 Age/Sex: 23/F Req #: [id number] Adm Physician: ZORAIDA KING MD Ordered by: ONI BEVERLY MD Report #: [id number] Location: ICU Room/Bed: ICU [facility] Procedure: [id number] US/US GUIDED PARACENTESIS Exam Date: 03/01/19 Exam Time: 1519 REPORT STATUS: Signed Procedure: Ultrasound-guided paracentesis profiling machine setup operator: Jasiel Li M.D. Pre-operative diagnosis: Ascites Post-operative diagnosis: Ascites Conscious Sedation: None. The patient's heart rate and pulse oximetry were continuously monitored by the IR nurse. Additional Medications: Lidocaine 1% for local anesthesia Estimated blood loss: Less than 1 cc. Specimen: 2600 cc of milky yellow fluid Implants: None TECHNIQUE/FINDINGS: Informed consent was obtained from the patient and documented in the medical record. The patient was placed in the supine position. Initial ultrasound demonstrated ascites. The right lower abdomen was prepped and draped in standard sterile fashion. 1% lidocaine was infiltrated into the skin and subcutaneous tissues for local anesthesia. Then under continuous sonographic guidance, a 5 Fr catheter was advanced into the peritoneal space. The catheter was connected to vacuum bottle with subsequent evacuation of 2600 cc of fluid. The catheter was removed and sterile dressing was applied. Sample was sent to the lab. The patient tolerated the procedure well. IMPRESSION: Successful ultrasound- guided paracentesis. Signed by: Jasiel Li on 03/01/2019 4:47 PM Dictated By: JASIEL LI MD 46 Transcribed By: CEE on 03/01/191646 COPY TO: ONI BEVERLY MD, [facility] US ABDOMEN LIMITED 2019-03-01 09:52:00 [place] [address] Patient Name: RYAN BRAND MR #: [id number] : 1995 Age/Sex: 23/F Req #: [id number] Adm Physician: ZORAIDA KING MD Ordered by: ONI BEVERLY MD Report #: [id number] Location: ICU Room/Bed: ICU [facility] Procedure: [id number] US/US ABDOMEN LIMITED Exam Date: 03/01/19 Exam Time: 911 REPORT STATUS: Signed Abdominal ultrasound, limited. History: Ascites. Comparison: None available. Discussion: Transverse and longitudinal sonographic images of the 4 quadrants the abdomen were obtained demonstrating a moderate amount of free fluid. IMPRESSION: Moderate ascites. Signed by: Jasiel Li on 03/01/2019 9:53 AM Dictated By: JASIEL LI MD 2 Transcribed By: CEE on 03/01/19952 COPY TO: ONI BEVERLY MD, ABI CT CHEST WO 2019-02-28 11:16:00 [place] [address] Patient Name: RYAN BRAND MR #: [id number] : 1995 Age/Sex: 23/F Req #: [id number] Adm Physician: ZORAIDA KING MD Ordered by: ONI BEVERLY MD Report #: [id number] Location: ICU Room/Bed: ICU [facility] Procedure: [id number] CT/CT CHEST WO Exam Date: 02/28/19 Exam Time: 1050 REPORT STATUS: Signed CT of the chest, high resolution, without contrast, 02/28/2019. History: Interstitial/chylous lung disease. Comparison: Chest x-ray 02/27/2019. Technique: Multidetector CT scanning of the chest was performed from the level of the thoracic inlet to the upper abdomen without IV or oral contrast. Thin collimation scanning during the inspiratory and expiratory phases as well as in the prone position was performed. Sagittal and coronal multiplanar reformations were obtained. RADIATION DOSE: Total DLP: 1304 mGy*cm Dose modulation, iterative reconstruction, and/or weight based adjustment of the mA/kV was utilized to reduce the radiation dose to as low as reasonably achievable. Discussion: Chest: Evaluation of the heart and mediastinal structures is limited secondary to lack of intravenous contrast. The heart and aorta are normal in size. However, a thick rim of fluid is seen is surrounding the heart and extending superiorly, measuring up to 3.6 cm along its left superior aspect. There is prominence of the main pulmonary artery which measures 3.1 cm in diameter. The thyroid is unremarkable. Edema is present throughout the mediastinal fat making evaluation for adenopathy difficult. The central airways are patent. There is circumferential bilateral pleural thickening/fluid. Bilateral small multiloculated pleural effusions are present at the lung bases. There is diffuse bilateral peribronchovascular thickening. Patchy consolidation is present throughout the right lower lobe, lingular, and both lower lobes. Limited evaluation of the upper abdomen shows normal adrenal glands. Bones and soft tissues: No acute abnormality. Multiple hyperdensities are seen along the anterior aspect of the vertebral bodies consistent with prior lymphangiogram. A stent is also seen anteriorly along the mid thoracic vertebral bodies likely within the thoracic duct. IMPRESSION: 1. Diffuse bilateral interstitial prominence and multifocal consolidation. Although the findings may secondary to CHF and atelectasis, superimposed pneumonia cannot be excluded. 2. Small bilateral multiloculated pleural effusions. 3. Possible pericardial effusion versus medial loculated pleural effusion. Consider further evaluation with echocardiogram. Signed by: Jasiel Li on 02/28/2019 11:32 AM Dictated By: JASIEL LI MD 1132 Transcribed By: CEE on 02/28/19 1132 COPY TO: ONI BEVERLY MD, [facility] CHEST (INCL MEDIASTINUM) 2019-02-28 08:35:00 [place] [address] Patient Name: RYAN BRAND MR #: [id number] : 1995 Age/Sex: 23/F Req #: [id number] Adm Physician: ZORAIDA KING MD Ordered by: ONI BEVERLY MD Report #: [id number] Location: ICU Room/Bed: ICU 1941 Procedure: [id number] US/US CHEST (INCL MEDIASTINUM) Exam Date: 02/28/19 Exam Time: 0743 REPORT STATUS: Signed Chest ultrasound. History: Pleural effusion. Comparison: Chest x-ray from 02/27/2019. Discussion: Transverse and longitudinal sonographic imaging of the bilateral posterior chest was performed. Small bilateral pleural effusions are identified. IMPRESSION: Small bilateral pleural effusions. Signed by: Jasiel Li on 02/28/2019 8:40 AM Dictated By: JASIEL LI MD 9 Transcribed By: CEE on 02/28/19839 COPY TO: ONI BEVERLY MD, [facility] CHEST 2 VIEWS 2019-02-27 18:21:00 [place] [address] Patient Name: RYAN BRAND MR #: [id number] : 1995 Age/Sex: 23/F Req #: [id number] Adm Physician: Ordered by: CAR ABBASI MD Report #: [id number] Location: ER Room/Bed: Procedure: [id number] DX/CHEST 2 VIEWS Exam Date: 02/27/19 Exam Time: 180 REPORT STATUS: Signed EXAMINATION: PA and lateral views of the chest. COMPARISON: AP chest 03/28/2018 CLINICAL HISTORY: Shortness of breath, dizziness, fluid in lungs DISCUSSION: Lines/tubes: None. Lungs: Lungs are well-inflated. Bilateral interstitial and alveolar opacities extending from the eva. Pleura: Bilateral moderate pleural effusions Heart and mediastinum: Cardiac silhouette is obscured. Marked central pulmonary venous congestion. Bones and soft tissues: No acute bony abnormalities. IMPRESSION: 1. Findings consistent with decompensated CHF/fluid overload Signed by: Dr. Keegan Higgins M.D. on 02/27/2019 6:22 PM Dictated By: KEEGAN HIGGINS MD 21 Transcribed By: CEE on 02/27/191821 COPY TO: CAR ABBASI MD US OB NOWAK 1 OR MORE FETUSES 2018-04-01 11:44:00 [place] [address] Patient Name: RYAN BRAND MR #: [id number] : 1995 Age/Sex: 22/F Req #: [id number] Adm Physician: ZORAIDA KING MD Ordered by: ZORAIDA KING MD Report #: [id number] Location: MED/SURG2 Room/Bed: [facility] Procedure: [id number] US/US OB NOWAK 1 OR MORE FETUSES Exam Date: 04/01/18 Exam Time: 1055 REPORT STATUS: Signed EXAM: Obstetric Pelvic Ultrasound limited INDICATION: Post procedure ultrasound COMPARISON: March 29, 2018 TECHNIQUE: Transabdominal evaluation of the pelvis was performed in the transverse and longitudinal planes with grayscale, color Doppler and spectral waveform analysis. CLINICAL HISTORY: 22 year old A0; mp 12/27/2017. Established due date 10/03/2018 FINDINGS: Uterus: Orientation: Normal Cervix: Cervical length 2.5 cm. Distance of placental tip to internal cervical os 4.1 cm No evidence of placenta previa. Single gestation. Visualized anatomy: Four- chamber heart is limited Regular cardiac rhythm noted with 156 bpm. Normal-appearing stomach visualized. Kidneys not well seen. bladder nondistended. BPD 2.7 cm. HC 10.23 cm. AC 8.0 cm. FL 1.46 cm position transverse and variable. Placental location posterior YOHANNES 11.3 cm IMPRESSION: Single viable intrauterine is seen consistent with 14 weeks 5 days gestation in variable position. No evidence of placenta previa. Signed by: Dr. Kamille Valera M.D. on 04/01/2018 11:53 AM Dictated By: KAMILLE VALERA MD, MD 1150 Transcribed By: CEE on 04/01/18 1153 COPY TO: ZORAIDA KING MD THORACENTESIS/US GUIDED 2018-04-01 10:58:00 [place] [address] Patient Name: RYAN BRAND MR #: [id number] : 1995 Age/Sex: 22/F Req #: [id number] Adm Physician: ZORAIDA KING MD Ordered by: ZORAIDA KING MD Report #: [id number] Location: MED/SURG2 Room/Bed: [facility] Procedure: 4 US/THORACENTESIS/US GUIDED Exam Date: Exam Time: REPORT STATUS: Signed PROCEDURE: ULTRASOUND GUIDED THORACENTESIS COMPARISON: None. INDICATIONS: PLEURAL EFFUSION FINDINGS: After informed consent was obtained, the patient was placed in the sitting position and preliminary ultrasound of the posterior chest identified a safe route into the right pleural effusion. The overlying skin was prepped and draped in usual sterile fashion. Lidocaine 1% was used for local anesthesia. Under ultrasound guidance, a 5 [employer] needle was advanced into the pleural fluid and 1550 cc's were aspirated. The patient tolerated the procedure well and there were no immediate post-procedural complications. A post-thoracentesis chest radiograph was declined by the patient as she is . Specimen was sent to the laboratory for analysis. CON CLUSION: Uncomplicated ultrasound-guided right thoracentesis with removal of 1550 cc's of cloudy effusion. Enrique Ellison D.O. Dictated by: Enrique Ellison D.O. on 04/01/2018 at 10:58 Electronically approved by: Enrique Ellison D.O. on 04/01/2018 at 10:58 Dictated By: ENRIQUE ELLISON DO 1058 Transcribed By: CRESENCIO on 04/01/18 1058 COPY TO: ZORAIDA KING MD US CHEST (INCL MEDIASTINUM) 2018-03-31 15:48:00 [place] [address] Patient Name: RYAN BRAND MR #: [id number] : 1995 Age/Sex: 22/F Req #: [id number] Adm Physician: ZORAIDA KING MD Ordered by: ZORAIDA KING MD Report #: [id number] Location: MED/SURG Room/Bed: [facility] Procedure: [id number] US/US CHEST (INCL MEDIASTINUM) Exam Date: Exam Time: REPORT STATUS: Signed ULTRASOUND: Chest TECHNIQUE: Ultrasound evaluation of the chest for pleural effusion. HISTORY: Pleural effusion COMPARISON: Chest radiograph March 28, 2018. DISCUSSION: Bilateral anechoic fluid in the dependent portion of the pleural cavities. IMPRESSION: Moderate bilateral pleural effusions. Signed by: Dr. Syed Helton D.O., M.M.M. on 03/31/2018 3:50 PM Dictated By: SYED HELTON DO 49 Transcribed By: CEE on 03/31/181549 COPY TO: ZORAIDA KING MD US OB 1st TRIM SINGLE GEST 2018-03-29 13:41:00 [place] [address] Patient Name: RYAN BRAND MR #: [id number] : 1995 Age/Sex: 22/F Req #: [id number] Adm Physician: ZORAIDA KING MD Ordered by: SANTIAGO LUONG MD Report #: [id number] Location: [facility] Room/Bed: [place] [address] Procedure: [id number] US/US OB 1st TRIM SINGLE GEST Exam Date: Exam Time: REPORT STATUS: Signed EXAM: US OB 1st TRIM SINGLE GEST INDICATION: High risk evaluation COMPARISON: None TECHNIQUE: Transabdominal and transvaginal grayscale and color doppler sonographic images of the pelvis were obtained. Transvaginal imaging was medically necessary to better evaluate the fetus. 22 yr old A0 Last Menstrual Period: Not reported FINDINGS: UTERUS: Orientation: Anteverted Size: 12.8 x 9.2 x 9.8 Mass: None Cervix: Normal GESTATIONAL SAC: Intrauterine, normal in appearance. No evidence of a subchorionic hemorrhage. YOLK SAC: Visualized EMBRYO/FETUS: [place]-rump length: 6.98 Estimated sonographic gestational age: 13w 1d Cardiac activity: 155 bpm RIGHT OVARY: Removed LEFT OVARY: Poorly visualized due to abdominal gas. Mild free fluid. IMPRESSION: Single living intrauterine . Sonographic gestational age estimated at 13weeks 1days. Signed by: Dr. Yasmany Santana M.D. on 03/29/2018 2:03 PM Dictated By: YASMANY SANTANA MD 02 Transcribed By: CEE on 03/29/181402 COPY TO: SANTIAGO LUONG MD IR CONSULT 2018-03-29 13:38:00 [place] [address] Patient Name: RYAN BRAND MR #: [id number] : 1995 Age/Sex: 22/F Req #: [id number] Adm Physician: ZORAIDA KING MD Ordered by: KIRSTEN GARDNER CORE DROPPER Report #: [id number] Location: [facility] Room/Bed: [place] [address] Procedure: [id number] DX/IR CONSULT Exam Date: Exam Time: REPORT STATUS: Signed Procedure: Ultrasound-guided left diagnostic and therapeutic thoracentesis profiling machine setup operator: Dr. Skyler Osborne Pre- operative diagnosis: Left pleural effusion Post-operative diagnosis: Left pleural effusion Local sedation: 10 cc of 1% subcutaneous lidocaine Estimated blood loss: Minimal Specimens: 1750cc pleural fluid Implants: None DISCUSSION: Informed consent was obtained from the patient and documented in the medical record. The patient was placed in the upright position. The left posterior chest was prepped and draped in standard sterile fashion. 1% lidocaine was infiltrated into the skin and subcutaneous tissues for local anesthesia. Then under sonographic guidance, a 5 Fr catheter was advanced into the left pleural space. The catheter was advanced off the needle and connected to vacuum bottle with subsequent evacuation of 1750 cc of dark serous fluid. The catheter was removed and a sterile, occlusive dressing was applied. Sample was sent to the lab. The patient tolerated the procedure well. FINDINGS: Large left pleural effusion. IMPRESSION: Ultrasound-guided left thoracentesis with evacuation of 1750 cc straw-colored fluid. PLAN: Post procedural monitoring per protocol. Of note, the patient is and declined a post procedural chest radiograph at the time of the procedure. Signed by: Dr. Skyler Osborne MD on 03/29/2018 1:48 PM Dictated By: SKYLER OSBORNE MD 1348 Transcribed By: CEE on 03/29/18 1348 COPY TO: KIRSTEN GARDNER NP THORACENTESIS/US GUIDED 2018-03-29 13:38:00 [place] [address] Patient Name: RYAN BRAND MR #: [id number] : 1995 Age/Sex: 22/F Req #: [id number] Adm Physician: ZORAIDA KING MD Ordered by: KIRSTEN GARDNER CORE DROPPER Report #: [id number] Location: [facility] Room/Bed: [place] [address] Procedure: US/THORACENTESIS/US GUIDED Exam Date: 03/29/18 Exam Time: 1052 REPORT STATUS: Signed Procedure: Ultrasound-guided left diagnostic and therapeutic thoracentesis profiling machine setup operator: Dr. Skyler Osborne Pre-operative diagnosis: Left pleural effusion Post-operative diagnosis: Left pleural effusion Local sedation: 10 cc of 1% subcutaneous lidocaine Estimated blood loss: Minimal Specimens: 1750cc pleural fluid Implants: None DISCUSSION: Informed consent was obtained from the patient and documented in the medical record. The patient was placed in the upright position. The left posterior chest was prepped and draped in standard sterile fashion. 1% lidocaine was infiltrated into the skin and subcutaneous tissues for local anesthesia. Then under sonographic guidance, a 5 Fr catheter was advanced into the left pleural space. The catheter was advanced off the needle and connected to vacuum bottle with subsequent evacuation of 1750 cc of dark serous fluid. The catheter was removed and a sterile, occlusive dressing was applied. Sample was sent to the lab. The patient tolerated the procedure well. FINDINGS: Large left pleural effusion. IMPRESSION: Ultrasound- guided left thoracentesis with evacuation of 1750 cc straw-colored fluid. PLAN: Post procedural monitoring per protocol. Of note, the patient is and declined a post procedural chest radiograph at the time of the procedure. Signed by: Dr. Skyler Osborne MD on 03/29/2018 1:48 PM Dictated By: SKYLER OSBORNE MD 1348 Transcribed By: CEE on 03/29/18 1348 COPY TO: KIRSTEN GARDNER NP CHEST SINGLE (PORTABLE) 2018-03-28 15:54:00 [place] [address] Patient Name: RYAN BRAND MR #: [id number] : 1995 Age/Sex: 22/F Req #: [id number] Adm Physician: Ordered by: KIRSTEN GARDNER CORE DROPPER Report #: [id number] Location: ER Room/Bed: Procedure: [id number] DX/CHEST SINGLE (PORTABLE) Exam Date: 03/28/18 Exam Time: 1540 REPORT STATUS: Signed EXAMINATION: CHEST SINGLE (PORTABLE) COMPARISON: None INDICATION: Shortness of breath, history of fluid in the lungs DISCUSSION: Frontal view of the chest obtained at 1540 hours. HEART AND MEDIASTINUM: The heart is normal in morphology LINES: None. LUNGS/PLEURA: Moderate to large right pleural effusion. Small left pleural effusion. Aerated lung demonstrates no evidence of mass. No pneumonia or pulmonary edema. No pneumothorax. BONES AND SOFT TISSUES: No focal osseous lesion. The soft tissues are normal. IMPRESSION: Moderate to large right and small left pleural effusions. Underlying infiltrate or mass cannot be excluded. Signed by: Dr. Patt Gary MD on 03/28/2018 4:01 PM Dictated By: PATT GARY MD [id number] Transcribed By: CEE on 03/28/18 1601 COPY TO: KIRSTEN GARDNER NP
--- OUTSIDE RECORDS SUMMARY | 2019-12-07 16:47 | XMS REPORT ---
Author Author RYAN CATES Organization Unknown Address Unknown Phone Care Team Providers Care Shopper Name Role Phone JESI CATES PP Unavailable Reason for Referral No Reason for Referral was given. History of Present Illness No HPI available. Problems * Normal Routine History And Physical Adolescent (12 - 17) (V20.2); ( Active) * Urinary Tract Infection (599.0); (Active) * Abdominal Pain (789.00); (Active) Medication * Singulair 4 MG Oral Tablet Chewable (Active) * Tylenol TABS (Active) * Levocetirizine Dihydrochloride 5 MG Oral Tablet (Active) * Cefdinir 300 MG Oral Capsule; TAKE 1 CAPSULE EVERY 12 HOURS DAILY.; Start Date: 03/18/2013; End Date: 03/25/2013 (Active) * Hydrocodone-Acetaminophen 2.5-325 MG Oral Tablet; TAKE 1 TABLET 3 TIMES DAILY PRN pain; Start Date: 03/21/2013 (Active) Allergies and Adverse Reactions * No Known Drug Allergies (Active) Past Medical History * History of Esophageal Reflux (530.81); (Resolved) * History of Allergies (V15.09); (Resolved) Family History * Family history of Denial Of Any Significant Medical History (Active) * Maternal history of Chocolate Cyst Of Ovary (Active) Social History * Never A Smoker (Active) * Never Drank Alcohol (Active) Treatment Plan * [Q] URINALYSIS MICROSCOPIC 03/18/2013 Routine * CT Abdomen/Pelvis w/wo contrast 83999 03/21/2013 Stat Advance Directives * No Advance Directives available. Encounters * AUDIT 03/22/2013
--- OUTSIDE RECORDS SUMMARY | 2019-12-07 16:47 | XMS REPORT ---
Author Author RYAN Cantor Organization Unknown Address Unknown Phone Care Team Providers Care Proposal Manager Name Role Phone Eloina Cantor PP Unavailable Reason for Referral No Reason for Referral was given. History of Present Illness No HPI available. Problems * Normal Routine History And Physical Adolescent (12 - 17) (V20.2); ( Active) * Urinary Tract Infection (599.0); (Active) * Abdominal Pain (789.00); (Active) * Sprained Ribs (848.3); (Active) * Limb Pain (729.5); (Active) * Numbness (Hypesthesia) (782.0); (Active) Medication * Levocetirizine Dihydrochloride 5 MG Oral Tablet; TAKE 1 TABLET DAILY. (Active) * Ibuprofen 600 MG Oral Tablet; TAKE 1 TABLET 3 TIMES DAILY.; Start Date: 04/15/2013; End Date: (Active) * MonoNessa TABS; TAKE 1 TABLET DAILY. (Active) * Montelukast Sodium 10 MG Oral Tablet; TAKE 1 TABLET DAILY. (Active) Allergies and Adverse Reactions * No Known Drug Allergies (Active) Past Medical History * History of Esophageal Reflux (530.81); (Resolved) * History of Allergies (V15.09); (Resolved) Procedures Procedure Procedure Date Date Completed Status Reported Prior Surgical / Procedural History - - Denied Family History * Family history of Denial Of Any Significant Medical History (Active) * Maternal history of Chocolate Cyst Of Ovary (Active) Social History * Never A Smoker (Active) * Never Drank Alcohol (Active) * Marital History - Single (Active) Treatment Plan * [Q] URINALYSIS MICROSCOPIC 03/18/2013 Routine * CT Abdomen/Pelvis w/wo contrast 83392 03/21/2013 Stat * Medication Use 04/15/2013 Routine * Medication Use 10/31/2013 Routine * [QLH] CBC (INCLUDES DIFF/PLT) 10/31/2013 Routine * [QLH] SED RATE BY MODIFIED WESTERGREN 10/31/2013 Routine * [QLH] PANEL, COMPREHENSIVE 10/31/2013 Routine * [QLH] TSH, 3RD GENERATION W/REFLEX TO FT4 10/31/2013 Routine * Neurology Referral 10/31/2013 Routine Advance Directives * No Advance Directives available. Encounters * AUDIT 10/31/2013
--- OUTSIDE RECORDS SUMMARY | 2019-12-07 16:47 | XMS REPORT ---
Author Author RYAN CATES Organization Unknown Address Unknown Phone Care Team Providers Care Transition Manager Name Role Phone JESI CATES PP Unavailable Reason for Referral No Reason for Referral was given. History of Present Illness No HPI available. Problems * Normal Routine History And Physical Adolescent (12 - 17) (V20.2); ( Active) * Urinary Tract Infection (599.0); (Active) * Abdominal Pain (789.00); (Active) * Sprained Ribs (848.3); (Active) Medication * Hydrocodone-Acetaminophen 2.5-325 MG Oral Tablet; TAKE 1 TABLET 3 TIMES DAILY PRN pain; Start Date: 03/21/2013 (Active) * Tylenol TABS; TAKE 1 TO 2 TABLETS EVERY 6 HOURS NEEDED. (Active) * Levocetirizine Dihydrochloride 5 MG Oral Tablet; TAKE 1 TABLET DAILY. (Active) * Singulair TABS; TAKE 1 TABLET DAILY. (Active) * Lo Loestrin Fe TABS; TAKE 1 TABLET DAILY. (Active) * Ibuprofen 600 MG Oral Tablet; TAKE 1 TABLET 3 TIMES DAILY.; Start Date: 04/15/2013; End Date: (Active) Allergies and Adverse Reactions * No [...] 03/18/2013 Routine * CT Abdomen/Pelvis w/wo contrast 14587 03/21/2013 Stat * Medication Use 04/15/2013 Routine Advance Directives * No Advance Directives available. Encounters * AUDIT 05/06/2013
--- OUTSIDE RECORDS SUMMARY | 2019-12-07 16:47 | XMS REPORT ---
Author Author RYAN Arreola Organization Unknown Address Unknown Phone Care Team Providers Care Cardiac Care Unit Nurse Name Role Phone Leeann Arreola PP Unavailable Reason for Referral No Reason for Referral was given. History of Present Illness No HPI available. Problems * Normal Routine History And Physical Adolescent (12 - 17) (V20.2); ( Active) * Urinary Tract Infection (599.0); (Active) * Abdominal Pain (789.00); (Active) * Sprained Ribs (848.3); (Active) * Limb Pain (729.5); (Active) * Numbness (Hypesthesia) (782.0); (Active) * Fatigue (780.79); (Active) * Muscle Weakness Generalized (728.87); (Active) * Nausea With Vomiting (787.01); (Active) * Systemic Lupus Erythematosus (710.0); (Active) * Infective Dermatitis Of The Eyelid (373.4); (Active) Medication * Levocetirizine Dihydrochloride 5 MG Oral Tablet; TAKE 1 TABLET DAILY. (Active) * Ibuprofen 600 MG Oral Tablet; TAKE 1 TABLET 3 TIMES DAILY.; Start Date: 04/15/2013; End Date: (Active) * MonoNessa TABS; TAKE 1 TABLET DAILY. (Active) * Montelukast Sodium 10 MG Oral Tablet; TAKE 1 TABLET DAILY. (Active) * TobraDex 0.3-0.1 % Ophthalmic Ointment; APPLY 1/2" RIBBON TO AFFECTED AREA OF EYELIDS DIRECTED.; Start Date: 11/02/2013; End Date: (Active) Allergies and Adverse Reactions [...] 03/18/2013 Routine * CT Abdomen/Pelvis w/wo contrast 87501 03/21/2013 Stat * Medication Use 04/15/2013 Routine * Medication Use 10/31/2013 Routine Advance Directives * No Advance Directives available. Encounters * AUDIT 11/09/2013
--- OUTSIDE RECORDS SUMMARY | 2019-12-07 16:47 | XMS REPORT ---
Author Author KEVIN RYAN MCNEILL Organization Unknown Address Unknown Phone Care Team Providers Care Industrial Gas Servicer Helper Name Role Phone OSITO BROWN PP Unavailable Reason for Referral No Reason [...] 03/18/2013 Routine * CT Abdomen/Pelvis w/wo contrast 97239 03/21/2013 Stat Advance Directives * No Advance Directives available. Encounters * AUDIT 03/24/2013
--- OUTSIDE RECORDS SUMMARY | 2019-12-07 16:47 | XMS REPORT ---
Author Author RYAN CATES Organization Unknown Address Unknown Phone Care Team Providers Care Paperback Machine Operator Name Role Phone JESI CATES PP Unavailable [...] 03/18/2013 Routine * CT Abdomen/Pelvis w/wo contrast 95390 03/21/2013 Stat * XRAY Ribs unilateral 52130 04/15/2013 Routine * Medication Use 04/15/2013 Routine Advance Directives * No Advance Directives available. Encounters * AUDIT 04/15/2013
--- OUTSIDE RECORDS SUMMARY | 2019-12-07 16:47 | XMS REPORT ---
Author Author RYAN Madden Organization Unknown Address Unknown Phone Care Team Providers Care Farm Machinery Erector Name Role Phone Sanjuana Madden PP Unavailable Reason for Referral No Reason [...] 03/18/2013 Routine * CT Abdomen/Pelvis w/wo contrast 56561 03/21/2013 Stat * Medication Use 04/15/2013 Routine * Medication Use 10/31/2013 Routine * Neurology Referral 10/31/2013 Routine * Rheumatology Referral 11/02/2013 Routine Advance Directives * No Advance Directives available. Encounters * AUDIT 11/03/2013
--- OUTSIDE RECORDS SUMMARY | 2019-12-07 16:47 | XMS REPORT ---
Author Author RYAN BROWN OSITO Organization Unknown Address Unknown Phone Care Team Providers Care Personnel Administrator Name Role Phone OSITO BROWN PP Unavailable [...] 03/18/2013 Routine * CT Abdomen/Pelvis w/wo contrast 13883 03/21/2013 Stat * [QLH] CBC (INCLUDES DIFF/PLT) 03/21/2013 Routine * [QLH] SED RATE BY MODIFIED BILLY 03/21/2013 Routine * [QL] CMP W/EGFR 03/21/2013 Routine Advance Directives * No Advance Directives available. Encounters * AUDIT 03/21/2013
--- OUTSIDE RECORDS SUMMARY | 2019-12-07 16:47 | XMS REPORT | Continuity of Care Document ---
Author Author DekkunRYAN [facility] [employer] Address Unknown Phone Unavailable Care Team Providers Care Field Cane Scaler Helper Name Role Phone [facility] [employer] Unavailable Un available Problems Problem Status Onset Date Classification Date Reported Comments Source 848.3 - SPRAIN OF RIBS Active 04/15/2013 [facility] Urinary Tract Infection Active 11/09/2013 [facility] Abdominal Pain Active 11/09/2013 [facility] Sprained Ribs Active 11/09/2013 [facility] Limb Pain Active 11/09/2013 [facility] Numbness (Hypesthesia) Active 11/09/2013 [facility] Fatigue Active 11/09/2013 [facility] Muscle Weakness Generalized Ac tive 11/09/2013 [facility] Nausea With Vomiting Active 11/09/2013 [facility] Systemic Lupus Erythematosus A ctive 11/09/2013 [facility] Infective Dermatitis Of The Eyelid Active 11/09/2013 [facility] Medications Medication Details Route Status Patient Instructions Ordering Provider Order Date Source TobraDex 0.3-0.1 % Ophthalmic Ointment ; Start Date: 11/02/2013; End Date: (Active) Active 11/02/2013 [facility] Ibuprofen 600 MG Oral Tablet ; Start Date: 04/15/2013; End Date: (Active) Active 04/15/2013 [facility] Hydrocodone-Acetaminophen 2.5-325 MG Oral Tablet ; Start Date: 03/21/2013 (Active) Active 03/21/2013 [facility] Cefdinir 300 MG Oral Capsule ; Start Date: 03/18/2013; End Date: 03/25/2013 (Active) Active 03/18/2013 [facility] Singulair 4 MG Oral Tablet Chewable (Active) Active [facility] Tylenol TABS (Active) Active [facility] Levocetirizine Dihydrochloride 5 MG Oral Tablet (Active) Active [facility] Singulair TABS (Active) Active [facility] Lo Loestrin Fe TABS (Active) Active [facility] MonoNessa TABS (Active) Active [facility] Montelukast Sodium 10 MG Oral Tablet (Active) Active [facility] Allergies, Adverse Reactions, Alerts Substance Category Reaction Severity Reaction type Status Date Reported Comments Source No Known Drug Allergies drug a llergy drug aller gy Active [facility] Immunizations No Data Provided for This Section Results No Data Provided for This Section Pathology Reports No Data Provided for This [...] Provider ADM Date DC Date Status Source AUDIT [id number] 03/18/2013 03/18/2013 [facility] AUDIT [id number] 03/21/2013 03/21/2013 [facility] AUDIT [id number] 03/22/2013 03/22/2013 [facility] AUDIT [id number] 03/24/2013 03/24/2013 [facility] AUDIT [id number] 04/15/2013 04/15/2013 [facility] OD [id number] 848.3 - SPRAIN OF RIBS JESI DARRYN 04/15/2013 Active [facility] AUDIT [id number] 05/06/2013 05/06/2013 [facility] AUDIT [id number] 10/31/2013 10/31/2013 [facility] AUDIT [id number] 11/03/2013 11/03/2013 [facility] AUDIT [id number] 11/09/2013 11/09/2013 [facility] Procedures No Data Provided for This Section Assessment and Plan No Data Provided for This Section Plan of Care Plan of Care Date Source [Q] URINALYSIS MICROSCOPIC 03/18/2013 [facility] [place]wo contrast 97793 03/21/2013 StatMedication Use 04/15/2013 RoutineMedication Use 10/31/2013 Routine 11/09/2013 [facility] [Q] URINALYSIS MICROSCOPIC 03/18/2013 [facility] [place] [facility]/Pelvis w/wo contrast 86604 03/21/2013 StatMedication Use 04/15/2013 RoutineMedication Use 10/31/2013 RoutineNeurology Referral 10/31/2013 RoutineRheumatology Referral 11/02/2013 Routine 11/03/2013 [facility] [Q] URINALYSIS MICROSCOPIC 03/18/2013 [place]en/Pelvis w/wo contrast 69853 03/21/2013 StatMedication Use 04/15/2013 RoutineMedication Use 10/31/2013 Routine[QLH] CBC (INCLUDES DIFF/PLT) 10/31/2013 Routine[QLH] SED RATE BY MODIFIED BILLY 10/31/2013 Routine[QLH] PANEL, COMPREHENSIVE 10/31/2013 Routine[QLH] TSH, 3RD GENERATION W/REFLEX TO FT4 10/31/2013 RoutineNeurology Referral 10/31/2013 Routine 10/31/2013 [facility] [Q] URINALYSIS MICROSCOPIC 03/18/2013 [place] Abdomen/Pelvis w/wo contrast 47887 03/21/2013 StatMedication Use 04/15/2013 Routine 05/06/2013 [facility] [Q] URINALYSIS MICROSCOPIC 03/18/2013 [place] Abdomen/Pelvis w/wo contrast 38667 03/21/2013 StatXRAY Ribs unilateral 06636 04/15/2013 RoutineMedication Use 04/15/2013 Routine 04/15/2013 [facility] [Q] URINALYSIS MICROSCOPIC 03/18/2013 [facility] [place] Abdomen/Pelvis w/wo contrast 96271 03/21/2013 Stat 03/24/2013 [facility] [Q] URINALYSIS MICROSCOPIC 03/18/2013 [place] Abdomen/Pelvis w/wo contrast 91019 03/21/2013 Stat 03/22/2013 [facility] [Q] URINALYSIS MICROSCOPIC 03/18/2013 [place] Abdomen/Pelvis w/wo contrast 71820 03/21/2013 Stat[QLH] CBC (INCLUDES DIFF/PLT) 03/21/2013 Routine[QLH] SED RATE BY MODIFIED BILLY 03/21/2013 Routine[QLH] CMP W/EGFR 03/21/2013 Routine 03/21/2013 [facility] [Q] URINALYSIS MICROSCOPIC 03/18/2013 Ro utine[QLH] CULTURE, URINE, ROUTINE 03/18/2013 Routine 03/18/2013 [facility] Social History Social History Date Source Never A Smoker (Active) Never Drank Alcohol (Active) Marital History - Single (Active) 11/09/2013 [facility] Family History Value Date S ource Family history of Denial Of Any Signific ant Medical History (Active) Maternal history of Chocolate Cyst Of Ovary (Active) 11/09/2013 [facility] Family history of Denial Of Any Signific ant Medical History (Active) Maternal history of Chocolate Cyst Of Ovary (Active) 11/03/2013 [facility] Family history of Denial Of Any Signific ant Medical History (Active) Maternal history of Chocolate Cyst Of Ovary (Active) 10/31/2013 [facility] Family history of Denial Of Any Signific ant Medical History (Active) Maternal history of Chocolate Cyst Of Ovary (Active) 05/06/2013 [facility] Family history of Denial Of Any Signific ant Medical History (Active) Maternal history of Chocolate Cyst Of Ovary (Active) 04/15/2013 [facility] Family history of Denial Of Any Signific ant Medical History (Active) Maternal history of Chocolate Cyst Of Ovary (Active) 03/24/2013 [facility] Family history of Denial Of Any Signific ant Medical History (Active) Maternal history of Chocolate Cyst Of Ovary (Active) 03/22/2013 [facility] Family history of Denial Of Any Signific ant Medical History (Active) Maternal history of Chocolate Cyst Of Ovary (Active) 03/21/2013 [facility] Family history of Denial Of Any Signific ant Medical History (Active) Maternal history of Chocolate Cyst Of Ovary (Active) 03/18/2013 [facility] Advance Directives Order Name Results Value Date Source Advance Directives Advance Dir ectives No Advance Directives available. 11/09/2013 [facility] Advance Directives Advance Dir ectives No Advance Directives available. 11/03/2013 [facility] Advance Directives Advance Dir ectives No Advance Directives available. 10/31/2013 [facility] Advance Directives Advance Dir ectives No Advance Directives available. 05/06/2013 [facility] Advance Directives Advance Dir ectives No Advance Directives available. 04/15/2013 [facility] Advance Directives Advance Dir ectives No Advance Directives available. 03/24/2013 [facility] Advance Directives Advance Dir ectives No Advance Directives available. 03/22/2013 [facility] Advance Directives Advance Dir ectives No Advance Directives available. 03/21/2013 [facility] Advance Directives Advance Dir ectives No Advance Directives available. 03/18/2013 [facility] Functional Status No Data Provided for This Section
--- OUTSIDE RECORDS SUMMARY | 2019-12-07 16:47 | XMS REPORT ---
Author Author RYAN CATES Organization Unknown Address Unknown Phone Care Team Providers Care Hole Digger Operator Name Role Phone JESI CATES PP Unavailable Reason for Referral No Reason for Referral was given. History of Present Illness No HPI available. Problems * Normal Routine History And Physical Adolescent (12 - 17) (V20.2); ( Active) * Abdominal Pain (789.00); (Active) * Urinary Tract Infection (599.0); (Active) Medication * Singulair 4 MG Oral Tablet Chewable (Active) * Tylenol TABS (Active) * Levocetirizine Dihydrochloride 5 MG Oral Tablet (Active) * Cefdinir 300 MG Oral Capsule; TAKE 1 CAPSULE EVERY 12 HOURS DAILY.; Start Date: 03/18/2013; End Date: 03/25/2013 (Active) Allergies and Adverse Reactions * No [...] * [Q] URINALYSIS MICROSCOPIC 03/18/2013 Routine * [QLH] CULTURE, URINE, ROUTINE 03/18/2013 Routine Advance Directives * No Advance Directives available. Encounters * AUDIT 03/18/2013
[2019-12-07 17:33] LABS: BASOPHILS % 0.6 % (0.0-1.0); EOSINOPHILS # (AUTO) 0.3 (0.0-0.4); EOSINOPHILS % 5.2 % (0.0-6.0); HEMATOCRIT 35.7 % (34.2-44.1); LYMPHOCYTES # (AUTO) 1.8 (1.0-3.2); LYMPHOCYTES % 28.6 % (18.0-39.1); MEAN CORPUSCULAR HEMOGLOBIN 25.2 pg (28-32); MEAN CORPUSCULAR HGB CONC 30.8 g/dL (31-35); MEAN CORPUSCULAR VOLUME 81.9 fL (81-99); MONOCYTES # (AUTO) 0.6 (0.2-0.8); MONOCYTES % 9.7 % (4.4-11.3); NEUTROPHILS # (AUTO) 3.5 (2.1-6.9); NEUTROPHILS % 55.7 % (38.7-80.0); PLATELET COUNT 271 x10e3/uL (140-360); RED BLOOD COUNT 4.36 x10e6/uL (3.6-5.1); RED CELL DISTRIBUTION WIDTH 14.4 % (11.7-14.4)
[2019-12-07 17:38] LABS: INR 1.1; PARTIAL THROMBOPLASTIN TIME 31.5 seconds (23.8-35.5); PROTHROMBIN TIME 14.9 seconds (11.9-14.5)
[2019-12-07] MEDS ORDERED: DONNATAL/LIDOCAINE/MAALOX 30 ML SUSP PO ONE (17:45)
[2019-12-07 17:46] LABS: ALANINE AMINOTRANSFERASE 6 IU/L (0-55); ALBUMIN 3.2 g/dL (3.5-5.0); ALBUMIN/GLOBULIN RATIO 0.7 (0.8-2.0); ALKALINE PHOSPHATASE 98 IU/L (40-150); BLOOD UREA NITROGEN 8 mg/dL (7-26); BUN/CREATININE RATIO 13 (6-25); CALCIUM 8.7 mg/dL (8.4-10.2); CARBON DIOXIDE 26 mmol/L (22-29); CHLORIDE 105 mmol/L (98-107); CHOLESTEROL 109 MD/DL (0-199); CREATININE, SERUM 0.62 mg/dL (0.57-1.11); EST GLOMERULAR FILTRATION RATE > 60 ML/MIN (60-); GLUCOSE 108 mg/dL (74-118); SODIUM 137 mmol/L (136-145); TRIGLYCERIDES 66 MG/DL (0-149)
[2019-12-07 17:47] LABS: CHOL/HDL RATIO 3.5 (3.0-3.6); CREATINE KINASE 66 IU/L (29-168); HDL CHOLESTEROL 31 MG/DL (40-60); LDL CHOLESTEROL 65 MG/DL (60-130); LIPASE 28 U/L (8-78)
--- NOTE | 2019-12-07 18:27 | Emergency Department Note ---
History of Present Illnes History of Present Illness Chief Complaint: Abdominal Complaints History of Present Illness This is a 24 year old female . Historian: Patient Arrival Mode: Car Onset (how long ago): day(s) Onset quality: gradual Duration (how long): day(s) Timing of current episode: intermittent Progression: waxing and waning Relieving factors: none Exacerbating factors: none Treatments prior to arrival: none (YOEL WELLS NP) Past Medical/Family History Physician Review I have reviewed the patient's past medical and family history. Any updates have been documented here. (YOEL WELLS NP) Past Medical History Recent Fever: No Clinical Suspicion of Infectio: No New/Unexplained Change in Ment: No Other Medical History: Frequent pleural effusions-requiring thoracentesis fluid retention issues Past Surgical History: T&A Other Surgery: Fallopian tube removal Chest tube tonsilletomy total pleurectomy of right lung (reported) Lymphatic shunt (YOEL WELLS NP) Social History Smoking Cessation: Never Smoker Counseling Performed: No Alcohol Use: Occasional Any Illegal Drug Use: No TB Exposure/Symptoms: No Physically hurt or threatened: No (YOEL WELLS NP) Other Last Tetanus: Unknown Any Pre-Existing Lines (PICC,: No Is patient up to date on immun: Yes Last Flu: UTD Last Pneumovax: none (YOEL WELLS NP) Review of Systems ROS Narrative Patient is a 24 year old female that presents with C/O abd radiating to chest- Patient having severe reflux, states pain takes her breath away. States she has episodes that are the same and they usually resolve on there own. Patient states she has fluid retention issues unknown origin since she was in her 20's, presents with ascites and bilateral lower leg edema that are chronic. Patient on home O2 (YOEL WELLS NP) Review of Systems Constitutional: malaise, weakness EENTM: no symptoms Cardiovascular: chest pain Respiratory: dyspnea, dyspnea on exertion Gastrointestinal: abdominal pain, nausea Genitourinary: no symptoms Musculoskeletal: no symptoms Neurological: no symptoms Psychological: no symptoms Endocrine: no symptoms Hematological/Lymphatic: no symptoms Review of other systems All other systems reviewed and negative. (YOEL WELLS NP) Physical Exam Related Data Allergies: Coded Allergies: No Known Allergies (Unverified , 03/28/18) Triage Vital Signs Vital Signs Date Time Temp Pulse Resp B/P (MAP) Pulse Ox O2 Delivery O2 Flow Rate FiO2 12/07/19 16:55 98.1 82 20 123/84 100 (YOEL WELLS NP) Physical Exam CONSTITUTIONAL Constitutional: well-developed, well-nourished HENT HENT: normocephalic, atraumatic EYES Eyes: PERRL, conjunctivae normal, EOM normal NECK Neck: ROM normal, supple PULMONARY Pulmonary: effort normal, breath sounds normal CARDIOVASCULAR Cardiovascular: regular rhythm, LLE edema (non pitting), RLE edema (non- pitting) GASTROINTESTINAL Abdominal: bowel sounds normal, distension GENITOURINARY Genitourinary: exam deferred SKIN Skin: warm, dry MUSCULOSKELETAL Musculoskeletal: edema, swelling NEUROLOGICAL Neurological: alert, oriented x 3, DTRs normal PSYCHOLOGICAL Psychological: mood/affect normal (YOEL WELLS NP) Results Laboratory Result Diagram: 12/07/19 1714 12/07/19 1714 Laboratory Laboratory Tests Test 12/07/19 17:14 White Blood Count 6.32 x10e3/uL (4.8-10.8) Red Blood Count 4.36 x10e6/uL (3.6-5.1) Hemoglobin 11.0 g/dL (12.0-16.0) Hematocrit 35.7 % (34.2-44.1) Mean Corpuscular Volume 81.9 fL (81-99) Mean Corpuscular Hemoglobin 25.2 pg (28-32) Mean Corpuscular Hemoglobin Concent 30.8 g/dL (31-35) Red Cell Distribution Width 14.4 % (11.7-14.4) Platelet Count 271 x10e3/uL (140-360) Neutrophils (%) (Auto) 55.7 % (38.7-80.0) Lymphocytes (%) (Auto) 28.6 % (18.0-39.1) Monocytes (%) (Auto) 9.7 % (4.4-11.3) Eosinophils (%) (Auto) 5.2 % (0.0-6.0) Basophils (%) (Auto) 0.6 % (0.0-1.0) Neutrophils # (Auto) 3.5 (2.1-6.9) Lymphocytes # (Auto) 1.8 (1.0-3.2) Monocytes # (Auto) 0.6 (0.2-0.8) Eosinophils # (Auto) 0.3 (0.0-0.4) Basophils # (Auto) 0.0 (0.0-0.1) Absolute Immature Granulocyte (auto 0.01 x10e3/uL (0-0.1) Prothrombin Time 14.9 seconds (11.9-14.5) Prothromb Time International Ratio 1.10 Activated Partial Thromboplast Time 31.5 seconds (23.8-35.5) Sodium Level 137 mmol/L (136-145) Potassium Level 4.0 mmol/L (3.5-5.1) Chloride Level 105 mmol/L (98-107) Carbon Dioxide Level 26 mmol/L (22-29) Anion Gap 10.0 mmol/L (8-16) Blood Urea Nitrogen 8 mg/dL (7-26) Creatinine 0.62 mg/dL (0.57-1.11) Estimat Glomerular Filtration Rate > 60 ML/MIN (60-) BUN/Creatinine Ratio 13 (6-25) Glucose Level 108 mg/dL (74-118) Calcium Level 8.7 mg/dL (8.4-10.2) Total Bilirubin 0.3 mg/dL (0.2-1.2) Aspartate Amino Transf (AST/SGOT) 17 IU/L (5-34) Alanine Aminotransferase (ALT/SGPT) 6 IU/L (0-55) Alkaline Phosphatase 98 IU/L (40-150) Ammonia 58 UG/DL (31-123) Creatine Kinase 66 IU/L (29-168) Creatine Kinase MB 0.60 ng/mL (0-5.0) Troponin I < 0.001 ng/mL (0-0.300) B-Type Natriuretic Peptide 43.2 pg/mL (0-100) Total Protein 7.5 g/dL (6.5-8.1) Albumin 3.2 g/dL (3.5-5.0) Globulin 4.3 g/dL (2.3-3.5) Albumin/Globulin Ratio 0.7 (0.8-2.0) Triglycerides Level 66 MG/DL (0-149) Cholesterol Level 109 MD/DL (0-199) LDL Cholesterol 65 MG/DL (60-130) HDL Cholesterol 31 MG/DL (40-60) Cholesterol/HDL Ratio 3.5 (3.0-3.6) Lipase 28 U/L (8-78) Human Chorionic Gonadotropin, Qual Negative (NEGATIVE) Lab results reviewed: Yes (YOEL WELLS NP) Imaging Imaging results reviewed: Yes (YOEL WELLS NP) Critical Care Time Subsequent provider I assumed direction of critical care for this patient from another provider of my specialty. (YOEL WELLS NP) Assessment & Plan Reassessment Reassessment 1809-Patient states that the epigastric pain takes her breath away, she states that the pain R/T upwards into chest. Patient states she has same type of episodes but they usually resolve on their own. Dr Ramsey also assessed and spoke to patient and a GI cocktail ordered. 1819- Awaiting all results (YOEL WELLS NP) Assessment & Plan Final Impression: (1) Reflux esophagitis Assessment & Plan Blood work, UA and CT scan to R/O any abnormalities Dr Ramsey also assessed patient Discussed with patient all results and treatment plan. Agrees with DC and all questions answered. (YOEL WELLS NP) Depart Disposition: HOME, SELF-CARE Last Vital Signs Date Time Temp Pulse Resp B/P (MAP) Pulse Ox O2 Delivery O2 Flow Rate FiO2 12/07/19 17:37 84 19 117/81 100 12/07/19 16:55 98.1 (YOEL WELLS NP) Home Meds Reported Medications Fluticasone Propionate (FLUTICASONE PROPIONATE) 16 G[address] [place].susp, 2 INH INH DAILY 02/27/19 Metoprolol Tartrate (METOPROLOL TARTRATE) 50 Mg Tablet, 50 MG PO BID 02/27/19 Bumetanide (BUMETANIDE) 1 Mg Tablet, 1 MG PO BID, #30 TAB 02/27/19 Hydroxychloroquine Sulfate (HYDROXYCHLOROQUINE SULFATE) 200 Mg Tablet, 200 MG PO DAILY 02/27/19 Sirolimus (RAPAMUNE) 1 Mg Tablet, 1 MG PO DAILY 02/27/19 Medications in the ED Belladonna Alkaloids/ Phenobarbital 30 ml ONCE ONCE PO Last administered on 12/07/19at 17:58; Admin Dose 30 ML; Start 12/07/19 at 17:45; Stop 12/07/19 at 17: 47; Status DC (YOEL WELLS NP) Physician Attestation Provider Attestation The patient's history, exam findings, diagnostics, and a summary of any inte rventions or procedures was reviewed in detail with our CJ. I personally interviewed and examined the patient, and I have reviewed and agree with the HPI andexam. My personal exam shows [+epigastric tenderness, blcta ]. I confirm the diagnosis as documented by the CJ. I have reviewed and agree with the care plan articulated in the disposition section. (JAZMYNE RAMSEY) YOEL WELLS NP December 07, 2019 18:27 JAZMYNE RAMSEY December 07, 2019 20:14
--- NOTE | 2019-12-07 18:29 | Diagnostic Imaging Report ---
Examination: Single AP view of the chest. COMPARISON: None. INDICATION: Chest pain DISCUSSION: Lines/tubes: None. Lungs: Interstitial edema. Lung base atelectasis. Pleura: Bilateral effusions. Heart and mediastinum: Cardiomegaly Bones and soft tissues: No acute bony abnormalities. IMPRESSION: 1. Cardiomegaly with edema and bilateral effusions. Signed by: Dr. Manuel Swain M.D. on 12/07/2019 6:26 PM
[2019-12-07 18:48] LABS: BILIRUBIN,URINE NEGATIVE (NEGATIVE); CLARITY,URINE SL CLOUDY (CLEAR); COLOR,URINE YELLOW (YELLOW); KETONES,URINE NEGATIVE (NEGATIVE); LEUKOCYTE ESTERASE ,URINE NEGATIVE (NEGATIVE); NITRITE,URINE NEGATIVE (NEGATIVE); PROTEIN,URINE DIPSTICK NEGATIVE (NEGATIVE); URINE UROBILINOGEN 0.2 mg/dL (0.2 - 1)
[2019-12-07 19:00] LABS: AMORPHOUS SEDIMENT,URINE FEW (FEW); BACTERIA,URINE MODERATE /HPF; EPITHELIAL CELLS,URINE MODERATE /LPF
[2019-12-07] MEDS ORDERED: PANTOPRAZOLE 40 MG 10ML VIAL IV ONE (19:01)
--- NOTE | 2019-12-07 19:55 | Diagnostic Imaging Report ---
EXAMINATION: CT of the abdomen and pelvis with contrast. TECHNIQUE: Spiral CT images of the abdomen and pelvis were performed from the lung bases to the lesser trochanters after the intravenous administration of 100 cc of Isovue 300 and the oral administration of none. Coronal and sagittal reformatted images were obtained. Dose modulation, iterative reconstruction, and/or weight based adjustment of the mA/kV was utilized to reduce the radiation dose to as low as reasonably achievable. COMPARISON: None. CLINICAL HISTORY:Abdominal pain DISCUSSION: ABDOMEN/PELVIS: LOWER THORAX:Bilateral lower lobe bilateral lower lobe airspace opacities. Small effusions. Pericardial effusion. HEPATOBILIARY: The liver is prominent in size. No intra-or extrahepatic biliary ductal dilation. The gallbladder is normal. SPLEEN: No splenomegaly. PANCREAS: No focal masses or ductal dilatation. ADRENALS: No adrenal nodules. KIDNEYS/URETERS: No hydronephrosis, stones, or solid mass lesions. PELVIC ORGANS/BLADDER: The bladder is normal. PERITONEUM/RETROPERITONEUM: Large volume ascites. LYMPH NODES: Calcified retroperitoneal and pelvic chain calcified nodes. VESSELS: Limited evaluation GI TRACT: No distention or wall thickening. BONES AND SOFT TISSUE: No bony destructive lesions. Soft tissue anasarca. IMPRESSION: Large volume ascites and soft tissue anasarca. Lung base airspace consolidations, greater on the right with small effusions. Signed by: Dr. Manuel Swain M.D. on 12/07/2019 7:52 PM
[2019-12-07] MEDS ORDERED: LIDOCAINE JELLY 2% 10ML URO-JET TOP ONE (20:00)
[2019-12-07 20:21] VITALS: BP 105/82
[2019-12-07] MEDS ORDERED: IOPAMIDOL 370 MG/ML 200 ML INFUS..BTL INJ ONE (21:17)
== END 2019-12-07 20:33 | disposition home or self-care (01) ==
LOC: ER 16:43
DX: R10.816 Epigastric abdominal tenderness (principal); R18.8 Other ascites; K21.0 Gastro-esophageal reflux disease with esophagitis
CPT/HCPCS: 36415; 71045; 74177; 80053; 80061; 81001; 82140; 82550; 82553; 83690; 83880; 84484; 84702; 85025; 85610; 85730; 99284; C9113; Q9967; 93005

== ENCOUNTER 2021-01-06 16:13 | Emergency (ER) | payer SELFPAY ==
[~2021-01-06] VITALS: Ht 149.9 cm; Wt 62.1 kg
[2021-01-06] MEDS ORDERED: SODIUM CHLORIDE 0.9% 1000ML 1,000 ML IV STA (16:58)
[2021-01-06] MEDS ORDERED: MORPHINE SULFATE INJ 4 MG/ML INJ 1ML IV PRN (17:00)
[2021-01-06] MEDS ORDERED: ONDANSETRON HCL INJ 2MG/ML 2ML 2 MG/ML VIAL IV NR (17:00)
[2021-01-06 18:09] LABS: BASOPHILS # (AUTO) 0.1 (0.0-0.1); BASOPHILS % 0.5 % (0.0-1.0); EOSINOPHILS # (AUTO) 0.1 (0.0-0.4); EOSINOPHILS % 0.7 % (0.0-6.0); HEMATOCRIT 43.1 % (34.2-44.1); LYMPHOCYTES # (AUTO) 0.6 (1.0-3.2); LYMPHOCYTES % 5.9 % (18.0-39.1); MEAN CORPUSCULAR HEMOGLOBIN 28.8 pg (28-32); MEAN CORPUSCULAR HGB CONC 32.5 g/dL (31-35); MEAN CORPUSCULAR VOLUME 88.7 fL (81-99); MONOCYTES # (AUTO) 0.3 (0.2-0.8); MONOCYTES % 2.9 % (4.4-11.3); NEUTROPHILS # (AUTO) 9.6 (2.1-6.9); NEUTROPHILS % 89.6 % (38.7-80.0); PLATELET COUNT 245 x10e3/uL (140-360); RED BLOOD COUNT 4.86 x10e6/uL (3.6-5.1); RED CELL DISTRIBUTION WIDTH 12.9 % (11.7-14.4)
[2021-01-06 18:21] LABS: CLARITY,URINE TURBID (CLEAR); COLOR,URINE YELLOW (YELLOW); KETONES,URINE TRACE (NEGATIVE); LEUKOCYTE ESTERASE ,URINE TRACE (NEGATIVE); NITRITE,URINE NEGATIVE (NEGATIVE); PROTEIN,URINE DIPSTICK 2+ (NEGATIVE); URINE UROBILINOGEN 1 mg/dL (0.2 - 1)
[2021-01-06] MEDS ORDERED: SODIUM CHLORIDE 0.9% 50ML 50 ML ONE (18:32)
[2021-01-06] MEDS ORDERED: IOPAMIDOL 370 MG/ML 200 ML INFUS..BTL INJ ONE (18:32)
[2021-01-06 18:38] LABS: BACTERIA,URINE FEW /HPF; EPITHELIAL CELLS,URINE MODERATE /LPF; RBC,URINE >50 /HPF (0-5)
[2021-01-06] MEDS ORDERED: CEFTRIAXONE 1 GM in SODIUM CHLORIDE 0.9% 50ML 50 ML IV ONE (19:00)
[2021-01-06] MEDS ORDERED: KETOROLAC TROMETHAMINE 30 MG/ML VIAL IV STA (21:06)
[2021-01-06 21:40] LABS: ALANINE AMINOTRANSFERASE 17 IU/L (0-55); ALBUMIN 4.4 g/dL (3.5-5.0); ALKALINE PHOSPHATASE 107 IU/L (40-150); BLOOD UREA NITROGEN 10 mg/dL (7-26); BUN/CREATININE RATIO 13 (6-25); CALCIUM 9.2 mg/dL (8.4-10.2); CHLORIDE 105 mmol/L (98-107); CREATINE KINASE 87 IU/L (29-168); CREATININE, SERUM 0.77 mg/dL (0.57-1.11); EST GLOMERULAR FILTRATION RATE 92 ML/MIN (60-); GLUCOSE 107 mg/dL (74-118); POTASSIUM 3.8 mmol/L (3.5-5.1); SODIUM 139 mmol/L (136-145)
[2021-01-06 22:16] LABS: ANION GAP 16.8 mmol/L (8-16); CARBON DIOXIDE 22 mmol/L (22-29)
[2021-01-07 02:23] VITALS: BP 106/72
== END 2021-01-07 02:26 | disposition other institution (70) ==
LOC: ER 17:08
DX: R10.12 Left upper quadrant pain (principal); R10.32 Left lower quadrant pain; R11.2 Nausea with vomiting, unspecified; N20.2 Calculus of kidney with calculus of ureter; R19.7 Diarrhea, unspecified; J90 Pleural effusion, not elsewhere classified; Z20.822 Contact with and (suspected) exposure to COVID-19
CPT/HCPCS: 36415; 74177; 80053; 81001; 81025; 82550; 82553; 83690; 84484; 85025; 93005; 99284; J0696; J1885; J2270; J2405; J7030; Q9967; U0002